=== PATIENT | male | born 1940 | race Caucasian/White ===

== ENCOUNTER 2020-03-12 14:44 | Observation (INO) | payer MEDICARE, SELFPAY ==
--- NOTE | ~2020-03-12 | XR_ITS ---
EXAMINATION: XR retrograde pyelo w/stent LT INDICATION: Left ureteral stone TECHNIQUE: Nine intraoperative fluoroscopic images are submitted for review. Fluoroscopy exposure dimple e was 12.7 seconds. The DAP for this procedure was 0.07016 mGym2. COMPARISON: CT from yesterday FINDINGS: Fluoroscopic images demonstrate retrograde opacification of a mildly dilated left renal col lecting system. There appears to be a left internal ureteral stent placed on the final image. Please refer to procedure note for full details. IMPRESSION: 1. Mild left hydronephrosis. Please refer to procedure note for full details. Reviewed, dictated and finalized at location A.
--- NOTE | ~2020-03-12 | XR_ITS ---
XR abdomen/kub 1V 03/12/2020 16:47 Indication: Left ureteral stone Procedure: KUB Comparison: CT dated 03/12/2020 Findings: There is a left ureteral stone at the L3-4 level. Moderate lumbar spondylosis. No acute oss eous abnormality. Nonobstructive bowel gas pattern. Impression: 1: Left urolithiasis at the L3-4 level. Reviewed, dictated and finalized at location A. Impression: 1: Left urolithiasis at the L3-4 level.
--- NOTE | ~2020-03-12 | CT_ITS ---
EXAMINATION: CT abdomen pelvis wo con DATE: 03/12/2020 16:04 INDICATION: Flank pain with nausea and vomiting for 3 days TECHNIQUE: Computed tomography (CT) of the abdomen and pelvis was performed without intravenous contr ast. The dose-length product was 852.89 mGy-cm. Automated exposure control and iterative reconstructi on technique were employed. COMPARISON: None. FINDINGS: Left lower lobe atelectasis. No significant pleural or pericardial effusion. There is ather osclerosis of the aorta and coronary arteries and infrarenal abdominal aortic aneurysm measuring 4.2 x 4.2 cm There is a 4 mm proximal left ureteral stone, image 82 with moderate left hydronephrosis. There is a right parapelvic cyst measuring 3.4 cm. There is a 2.1 cm exophytic left renal cyst. Enlarged prostate gland. The liver, spleen, adrenal glands are unremarkable. There is a punctate panc reatic calcification, consistent with chronic pancreatitis. Bowel pattern is nonobstructive. Colonic diverticulosis with mild surrounding pericolonic infiltration surrounding the descending colon which may relate to remote diverticulitis although mild acute diverticulitis is not excluded. Moderate lumb ar spondylosis. IMPRESSION: 1. 4 mm proximal left ureteral stone with moderate left hydronephrosis. 2: Mild chronic versus acute descending colonic diverticulitis. 3: Infrarenal abdominal aortic aneurysm measuring 4.2 cm. Reviewed, dictated and finalized at location A.
[2020-03-12 14:52] VITALS: BP 139/90; PULSE 100; RESP 18; TEMP 36.1; O2SAT 94
--- NOTE | 2020-03-12 14:57 | ECG_ITS ---
Measurements Intervals [place] Rate: 85 P: 60 KS: 195 QRS: -66 QRSD: 142 T: 99 QT: 382 QTc: 457 Interpretive Statements SINUS RHYTHM LEFT AXIS DEVIATION POSSIBLE LEFT ATRIAL ENLARGEMENT INTRAVENTRICULAR CONDUCTION DELAY BORDERLINE ST-T WAVE ABNORMALITY- HIGH LATERAL LEADS BASELINE ARTIFACT- I BORDERLINE ECG Electronically Signed On 03-12-2020 16:46:14 CDT by Rylan Lora D.O.
--- NOTE | 2020-03-12 15:09 | ED.ABDPAIN ---
HPI - Abdominal Pain General Chief Complaint: Nausea/Vomiting/Diarrhea <JODI Huff Last Filed: 03/12/20 17:13> Stated Complaint: Vomiting, ABD Pain <JODI Huff Last Filed: 03/12/20 17:13> Time Seen by Provider: 03/12/20 14:46 <JODI Huff Last Filed: 03/12/20 17:13> Source: patient <JODI Huff Last Filed: 03/12/20 17:13> Mode of arrival: ambulatory <JODI Huff Last Filed: 03/12/20 17:13> Limitations: no limitations <JODI Huff Last Filed: 03/12/20 17:13> History of Present Illness HPI narrative: Patient is a 79-year-old male who presents to emergency department for evaluation of abdominal pain coupled with nausea and vomiting that began Monday patient notes he has been having sharp stabbing pain in the left flank coupled with nausea and vomiting with multiple episodes patient denies any diarrhea rectal bleeding or urinary symptoms has not taken anything for his symptoms. Patient on arrival in the room in no distress and notes that his pain did start to improve on his way to the emergency department. Patient denies similar occurrence in the past <JODI uHff Last Filed: 03/12/20 17:13> Related Data Home Medications: Home Medications Medication Instructions Recorded Confirmed Adult Low Dose Aspirin DAILY 03/12/20 amlodipine DAILY 03/12/20 atorvastatin 80 mg PO HS 03/12/20 lisinopril DAILY 03/12/20 metoprolol succinate [Toprol XL] PO DAILY 03/12/20 <JODI Huff Last Filed: 03/12/20 17:13> Allergies/Adverse Reactions: Allergies Allergy/AdvReac Type Severity Reaction Status Date / Time No Known Allergies Allergy Verified 03/12/20 15:00 <JODI Huff Last Filed: 03/12/20 17:13> Review of Systems Review of Systems: All systems reviewed & are unremarkable except as noted in HPI and below <JODI Huff Last Filed: 03/12/20 17:13> PMF Past Medical History Medical History: Medical History (Updated 03/12/20 @ 17:13 by Josemanuel Augustin PA-C) Coronary artery disease Hypertension <Josemanuel Augustin PA-C - Last Filed: 03/12/20 17:13> Surgical History Surgical History: Surgical History Hx of CABG <Josemanuel Augustin PA-C - Last Filed: 03/12/20 17:13> Social History Social History: Social History (Updated 03/12/20 @ 15:11 by Josemanuel Augustin PA-C) Smoking status: Current every day smoker Alcohol intake: current Gender identity (if verbalized by the patient): Male <Josemanuel Augustin PA-C - Last Filed: 03/12/20 17:13> Exam Narrative: Exam Narrative: GENERAL: Well-appearing, well-nourished, and in no acute distress. HEAD: Normocephalic, atraumatic. EYES: PERRLA and EOMI. ENT: Nares clear, no rhinorrhea or epistaxis. Mucous membranes moist. CHEST: Clear to auscultation. No respiratory distress. No wheezes rales or rhonchi HEART: Regular rate and rhythm. No murmur heard. Normal peripheral pulses. ABDOMEN: Soft, mild tenderness of the abdomen, nondistended EXTREMITIES: Normal range of motion. No edema. SKIN: Warm, dry, no rash. NEURO: No focal deficits. Alert and oriented x3. PSYCH: Normal mood and affect. <Josemanuel Augustin PA-C - Last Filed: 03/12/20 17:13> Course Course Emergency Course: Patient in the room at this time aware of case findings treatment plan and diagnosis agreeing to stay in hospital aware of discussion with hospitalist and urologist afebrile nontoxic-appearing at this time <Josemanuel Augustin PA-C - Last Filed: 03/12/20 17:13> Consultations Consultation #1: Discussed case with hospitalist and urologist who agree with inpatient treatment of patient will be treated with fluids pain medications will have his troponins trended. <Josemanuel Augustin PA-C - Last Filed: 03/12/20 17:13> Date: 03/12/20 <L
[2020-03-12] MEDS: SODIUM CHLORIDE 0.9% IV 1,000 ML 999 ML IV CONT (15:13)
[2020-03-12 15:34] LABS: Basophils Absolute Auto 0.1 K/mm3 (0.0-0.1); Basophils Percent Auto 0.4 % (0.2-1.2); Eosinophils Absolute Auto 0.1 K/mm3 (0-0.3); Eosinophils Percent Auto 0.3 % (0-4.4); Hemoglobin 14.5 g/dL (14.0-18.0); Immature Granulocyte Absolute 0.09 K/mm3 (0.00-0.031); Immature Granulocyte Percent A 0.5 % (0-0.5); Lymphocytes Absolute Auto 1.78 K/mm3 (0.9-3.2); Lymphocytes Percent Auto 10.8 % (18.3-44.2); Mean Corpuscular HGB Conc 33.7 g/dl (32-36); Mean Corpuscular Volume 92.1 fl (80-100); Mean Platelet Volume 11.7 fl (7.4-10.4); Monocytes Absolute Auto 1.6 K/mm3 (0.1-0.6); Monocytes Percent Auto 9.7 % (2.6-8.5); Neutrophils Absolute Auto 12.9 K/mm3 (1.3-6.7); Neutrophils Percent Auto 78.3 % (45.5-73.1); Platelet Count Result 142 k/mm3 (150-375); Red Blood Count 4.67 M/mm3 (4.6-6.20); Red Cell Distribution Width 12.9 % (11.5-14.5); White Blood Count 16.5 K/mm3 (4.5-10.0)
[2020-03-12 15:44] LABS: INR 1.1; Prothrombin Time 13.7 Seconds (11.1-14.7)
[2020-03-12 15:45] LABS: Add Urine Microscopic? YES; Appearance Urine Clear (Clear); Bacteria Urine Trace /hpf; Bilirubin Urine Negative (Negative); Blood Urine 3+ (Negative); Color Urine Yellow (Yellow); Glucose Urine UA Negative (Negative); Granular Casts Urine 15-19 /lpf; Ketones Urine Trace mg/dL (Negative); Leukocyte Esterase Ur Negative LEU/UL (Negative); Mucus Urine Moderate /lpf; Nitrate Urine Negative (Negative); Partial Thromboplastin Time 25.2 SECONDS (22.3-36.8); Protein Urine 2+ mg/dL (Negative); RBC Urine >75 /hpf (0-2); Specific Grav Ur 1.028 (1.001-1.035); Squamous Epithelial Cell Urine Occasional /hpf (Few); Urobilinogen Urine Negative mg/dL (<2.0); WBC Urine 0-3 /hpf
[2020-03-12 15:51] LABS: Alanine Aminotransferase 20 U/L (4-50); Albumin Level 4.5 g/dL (3.5-5.1); Alkaline Phosphatase 116 U/L (38-126); Aspartate Amino Transferase 42 U/L (17-59); Bilirubin,Total 1.1 mg/dL (0.2-1.3); Blood Urea Nitrogen 37 mg/dL (9-20); Calcium 9.8 mg/dL (8.4-10.2); Carbon Dioxide 25 mmol/L (22-30); Chloride 106 mmol/L (98-107); Estimated CRCL calculation 27 ml/min; Estimated Glomerular Filt Rate 25; Glucose 107 mg/dL (75-110); Lipase 55 U/L (23-300); Sodium 139 mmol/L (137-145)
[2020-03-12 16:04] LABS: Troponin I 0.065 ng/mL (0.000-0.034)
[2020-03-12 16:11] VITALS: BP 159/85; PULSE 76; RESP 16; O2SAT 99
[2020-03-12] MEDS: LACTATED RINGERS 1,000 ML 999 ML IV CONT (16:11)
[2020-03-12] MEDS: MORPHINE SULFATE 4 MG/ML INJ IV PUSH ×4 (16:32→23:26)
[2020-03-12] MEDS: ONDANSETRON INJ 4 MG/2 ML VIAL IV PUSH (16:32)
--- NOTE | 2020-03-12 16:53 | PC.NURSE ---
family will call with eye drops to update med list
[2020-03-12] MEDS: TAMSULOSIN HCL 0.4 MG CAPSULE PO (17:45)
[2020-03-12] MEDS: LACTATED RINGERS 1,000 ML 75 ML IV CONT (17:45)
--- NOTE | 2020-03-12 18:30 | WPDURCON ---
Assessment and Plan Assessment and plan (1) Urolithiasis: Code(s): N20.9 - Urinary calculus, unspecified Status: Acute Assessment and Plan: We discussed options for his ureteral stone including trial of medical expulsive therapy as well as stenting his left kidney tomorrow. Because of his ongoing pain and his acute kidney injury I think it is prudent to take him to the OR in the morning for placement of a left ureteral stent. We discussed how the procedure is performed and the risks of anesthesia. We discussed that the stone will be treated in a few weeks as an outpatient. He and his family are in agreement and had no further questions. - to OR tomorrow morning at 0730 for cysto, left retrograde pyelogram, placement of left ureteral stent - if hospitalist team is comfortable with it, now that he has been rehydrated, 15 mg toradol would like significantly improve his pain - hopefully can discharge tomorrow afternoon - please covid test in preparation for anesthesia - please keep npo c mn Enrique Polanco MD [facility] (2) Acute kidney injury: Code(s): N17.9 - Acute kidney failure, unspecified Status: Acute Urology Consult Note HPI Date Seen: 03/12/20 Requesting Physician: Mark Arce MD Primary Care Provider: Bari Ford MD Consult Narrative Narrative: Carlos Hernandez is a 79 year old male with no history of nephrolithiasis who presented to the ED with left flank pain associated with nausea and emesis significant enough to cause some dehydration and acute kidney injury. No fevers at home. He continues to have significant pain. Creat at baseline is 1.0, creat in ED is 2.5. WBC is 16. Urinalysis shows RBC with no evidence of UTI. CT showed some parapelvic cysts and a left 5mm mid ureteral stone with mild-moderate hydro. Bladder is decompressed, prostate mildly to moderately enlarged. This consult was carried via telehealth with the patient's permission in the presence of his daughter using audio and video capabilities. Review of Systems Review of Systems: All systems reviewed & are unremarkable except as noted in HPI and below PMFSH Past Medical History Medical History Coronary artery disease Hypertension Surgical History Surgical History Hx of CABG Social History Social History Smoking status: Current every day smoker Alcohol intake: current Gender identity (if verbalized by the patient): Male Meds Home Medications and Allergies Home Medications Medication Instructions Recorded Confirmed Type Adult Low Dose Aspirin DAILY 03/12/20 History amlodipine DAILY 03/12/20 History atorvastatin 80 mg PO HS 03/12/20 History brimonidine BID 03/12/20 History latanoprost HS 03/12/20 History lisinopril DAILY 03/12/20 History metoprolol succinate [Toprol XL] PO DAILY 03/12/20 History Allergies Allergy/AdvReac Type Severity Reaction Status Date / Time No Known Allergies Allergy Verified 03/12/20 15:00 Vital Signs Vital Signs - 24 hr 03/12/20 14:52 03/12/20 16:11 Temperature 36.1 C L Pulse Rate 100 76 Respiratory Rate 18 16 Blood Pressure 139/90 159/85 H Pulse Oximetry 94 99 Exam Const: General: no acute distress and uncomfortable HENMT: Other: hearing normal Eyes: General: appearance normal, both eyes and all related structures Resp: Effort & Inspection: normal respiratory effort Auscultation: no wheezes Skin: General skin exam: normal color and no rashes or lesions noted Neuro: Cognition (Neuro): normal cognition Speech: normal speech Psych: Speech and movement: Normal speech and movement present Affect: normal affect Results Labs CBC & Chem 7: 03/12/20 15:26 03/12/20 15:26 Labs: Short CBC 03/12/20 Range
--- NOTE | 2020-03-12 18:46 | WPDANESEPP ---
Anes - Eval Pre Procedure Procedure: cysto with stent placement Date/Time: 03/12/20 18:46 Surgeon: kavya rosales M.D. Preop Diagnosis: urolithiasis Pre Op Diagnosis: Urolithiasis,acute kidney injury,elevated troponin Patient Data Age: 79 Gender: M Height: 1.8 m Weight: 102 kg Last Vital Signs Temp 36.1 C L 03/12/20 14:52 Pulse 76 03/12/20 16:11 Resp 16 03/12/20 16:11 BP 159/85 H 03/12/20 16:11 Pulse Ox 99 03/12/20 16:11 Allergies Allergy/AdvReac Type Severity Reaction Status Date / Time No Known Allergies Allergy Verified 03/12/20 15:00 Home Medications Medication Instructions Recorded Confirmed Type Adult Low Dose Aspirin DAILY 03/12/20 History amlodipine DAILY 03/12/20 History atorvastatin 80 mg PO HS 03/12/20 History brimonidine BID 03/12/20 History latanoprost HS 03/12/20 History lisinopril DAILY 03/12/20 History metoprolol succinate [Toprol XL] PO DAILY 03/12/20 History Laboratory Tests 03/12/20 03/12/20 03/12/20 15:26 15:26 15:26 WBC 16.5 K/mm3 H K/mm3 (4.5-10.0) RBC 4.67 M/mm3 M/mm3 (4.6-6.20) Hgb 14.5 g/dL g/dL (14.0-18.0) Hct 43.0 % % (42.0-52.0) MCV 92.1 fl fl (80-100) MCH 31.0 pg pg (26-34) MCHC 33.7 g/dl g/dl (32-36) RDW 12.9 % % (11.5-14.5) Plt Count 142 k/mm3 L k/mm3 (150-375) MPV 11.7 fl H fl (7.4-10.4) Immature Gran % (Auto) 0.5 % % (0-0.5) Neut % (Auto) 78.3 % H % (45.5-73.1) Lymph % (Auto) 10.8 % L % (18.3-44.2) [place] % (Auto) 9.7 % H % (2.6-8.5) Eos % (Auto) 0.3 % % (0-4.4) Baso % (Auto) 0.4 % % (0.2-1.2) Lymph # (Auto) 1.78 K/mm3 K/mm3 (0.9-3.2) [place] # (Auto) 1.6 K/mm3 H K/mm3 (0.1-0.6) Eos # (Auto) 0.1 K/mm3 K/mm3 (0-0.3) Baso # (Auto) 0.1 K/mm3 K/mm3 (0.0-0.1) Abs Immat Gran (auto) 0.09 K/mm3 H K/mm3 (0.00-0.031) Absolute Neuts (auto) 12.9 K/mm3 H K/mm3 (1.3-6.7) Absolute Nucleated RBC 0.0 K/mm3 K/mm3 (0.0-0.012) Nucleated RBC % 0.0 % % (0.0-0.2) PT 13.7 Seconds Seconds (11.1-14.7) INR 1.1 APTT 25.2 SECONDS SECONDS (22.3-36.8) Sodium 139 mmol/L mmol/L (137-145) Potassium 4.0 mmol/L mmol/L (3.4-5.0) Chloride 106 mmol/L mmol/L (98-107) Carbon Dioxide 25 mmol/L mmol/L (22-30) BUN 37 mg/dL H mg/dL (9-20) Creatinine 2.50 mg/dL H mg/dL (0.7-1.3) Estim Creat Clear Calc 27 ml/min ml/min Estimated GFR 25 L (59 - ) Glucose 107 mg/dL mg/dL (75-110) Calcium 9.8 mg/dL mg/dL (8.4-10.2) Total Bilirubin 1.1 mg/dL mg/dL (0.2-1.3) AST 42 U/L U/L (17-59) ALT 20 U/L U/L (4-50) Alkaline Phosphatase 116 U/L U/L (38-126) Troponin I 0.065 ng/mL H* ng/mL (0.000-0.034) Total Protein 8.0 g/dL g/dL (6.3-8.2) Albumin 4.5 g/dL g/dL (3.5-5.1) Lipase 55 U/L U/L (23-300) Urine Color Urine Appearance Urine pH Ur Specific [place] Urine Protein Urine Glucose (UA) Urine Ketones Ur Blood (Man) Urine Nitrate Urine Bilirubin Urine Urobilinogen Leukocyte Esterase Rfl Urine RBC Urine WBC Ur Squamous Epith Cells Urine Bacteria Hyaline Casts Granular Casts Urine Mucus 03/12/20 03/12/20 15:26 18:19 WBC RBC Hgb Hct MCV MCH MCHC RDW Plt Count MPV Immature Gran % (Auto) Neut % (Auto) Lymph % (Auto) [place] % (Auto
--- NOTE | 2020-03-12 18:48 | PC.NURSE ---
This patient, Carlos Hernandez, was admitted to IMU Room 210-01. Patient/family oriented to hospital policies and general routines including ID bracelet, bed and alarms, visiting hours, pain management, procedures, bathroom and other care routines, personal items, smoking policy, room service/diet, and visiting hours. Valuables list has been completed. Information on how to activate the Rapid Response Team has been discussed. Patient/Family are encouraged to report perceived risks to care and to ask questions if they do not understand what they are told or what they should do.
[2020-03-12 18:49] VITALS: BMI 30.3
[2020-03-12 19:00] VITALS: BP 158/90; PULSE 90; RESP 20; TEMP 36.9; O2SAT 94; BMI 30.3
[2020-03-12 19:10] LABS: Troponin I 0.071 ng/mL (0.000-0.034)
--- NOTE | 2020-03-12 19:10 | PM.IMHP ---
H&P: HPI History of Present Illness Chief complaint: Abdominal pain, nausea, vomiting. Narrative: Carlos Hernandez is a 79-year-old male smoker with coronary artery disease, hypertension, and hyperlipidemia who presented to the emergency department earlier this afternoon for evaluation of left flank pain, nausea, and vomiting. He developed sudden onset left low back/flank pain on Monday that has been constant, with varying intensities, since that time. The pain is described as sharp and shooting in nature, and does radiate from the left low back to the left flank and groin area. He has taken Tylenol without a whole lot of benefit. He does not notice any significant aggravating or relieving factors. Not long after the pain began, he developed nausea and he has had persistent nausea and occasional vomiting. He has not been able to hold down much in the way of food but has been trying to drink water. He has noticed that his urine is darker than normal and that he has had a decrease in urine output, but he denies overt hematuria and has not had dysuria. He has not had fever, chills, or sweats. He had a normal bowel movement Monday and he denies blood in mucus in the stool. He has no prior history of kidney stones. He does have a history of diverticulitis many years ago, and states that these symptoms are completely different than that. Review of Systems Review of Systems: Narrative: Twelve systems were reviewed with pertinent positives and negatives as per HPI. No fever, chills, or sweats. No recent cold or flu symptoms. He denies chest pain shortness of breath. No history of coronary disease. No cough. He denies hematemesis. Except as documented, all other systems were reviewed and are negative. [facility] Past Medical History Medical History (Updated 03/12/20 @ 22:20 by Julita Pichardo PA-C) Coronary artery disease Diverticulitis Glaucoma Hyperlipidemia Hypertension Osteoarthritis Surgical History Surgical History (Updated 03/12/20 @ 22:11 by Julita Pichardo PA-C) History of aortic valve replacement (~12/2018) Performed at the time of his 4 vessel CABG. History of appendectomy History of cervical spinal surgery History of four vessel coronary artery bypass graft (~12/2018) Done at [facility] in [facility]. History of total bilateral knee replacement Family History Family History (Updated 03/12/20 @ 22:12 by Julita Pichardo PA-C) Other Hypertension Social History Social History (Updated 03/12/20 @ 22:13 by Julita Pichardo PA-C) Social History: The patient lives in [place] with his daughter, son-in-law, and 2 grandchildren. 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 He smoked up to a pack of cigarettes per day, and now smokes less than half a pack a day. He has been a smoker for about 60 years. No alcohol or drug abuse. He designates his daughter, Sultana Santoyo, as his surrogate decision maker and he wishes to be a full code. Years smoked: 60 Smoking status: Current every day smoker Tobacco type: cigarettes Gender identity (if verbalized by the patient): Male Spiritual care concerns: No Meds Home Medications and Allergies Home Medications Medication Instructions Recorded Confirmed Type Adult Low Dose Aspirin DAILY 03/12/20 History amlodipine DAILY 03/12/20 History atorvastatin 80 mg PO HS 03/12/20 History brimonidine BID 03/12/20 History latanoprost HS 03/12/20 History lisinopril DAILY 03/12/20 History metoprolol succinate [Toprol XL] PO DAILY 03/12/20 History timolol maleate 1 drp RIGHTEYE BID 03/12/20 03/12/20 History Allergies Allergy/AdvReac Type Severity Reaction Status Date / Time No Known Allergies Allergy Verified 03/12/20 15:00 Vital Signs Vital Signs - 24 hr 03/12/20 14:52 03/12/20 16:11 03/12/20 19:00 Temperature 97.0 F L 98.5 F Pulse Rate 100 76 90 Respiratory Rate 18 16 20 Blood Pressu
[2020-03-12] MEDS: SODIUM CHLORIDE 0.9% IV 1,000 ML 100 ML IV CONT (19:58)
[2020-03-12 20:00] VITALS: BP 146/88; PULSE 89; PULSE 91; RESP 16; RESP 18; TEMP 36.9; O2SAT 95
[2020-03-12 21:51] LABS: Troponin I 0.068 ng/mL (0.000-0.034)
[2020-03-12 22:00] VITALS: PULSE 83
[2020-03-12] MEDS: ATORVASTATIN 40 MG TABLET 80 MG PO (23:26)
[2020-03-13] VITALS (22 sets, daily range): BP systolic 99–134; BP diastolic 56–79; PULSE 49–88; RESP 12–20; TEMP 35.9–37.3; O2SAT 91–99
[2020-03-13] MEDS: MORPHINE SULFATE 4 MG/ML INJ IV PUSH ×4 (03:39→18:22)
[2020-03-13 04:32] LABS: Basophils Absolute Auto 0.1 K/mm3 (0.0-0.1); Basophils Percent Auto 0.5 % (0.2-1.2); Eosinophils Absolute Auto 0.2 K/mm3 (0-0.3); Eosinophils Percent Auto 1.1 % (0-4.4); Hematocrit 38.7 % (42.0-52.0); Hemoglobin 11.9 g/dL (14.0-18.0); Immature Granulocyte Absolute 0.06 K/mm3 (0.00-0.031); Immature Granulocyte Percent A 0.4 % (0-0.5); Immature Platelet Fraction Pct 4.3 % (0.9-11.2); Lymphocytes Absolute Auto 1.71 K/mm3 (0.9-3.2); Lymphocytes Percent Auto 12.2 % (18.3-44.2); Mean Corpuscular HGB Conc 30.7 g/dl (32-36); Mean Corpuscular Hemoglobin 30.7 pg (26-34); Mean Corpuscular Volume 99.7 fl (80-100); Monocytes Absolute Auto 1.5 K/mm3 (0.1-0.6); Monocytes Percent Auto 10.7 % (2.6-8.5); Neutrophils Absolute Auto 10.6 K/mm3 (1.3-6.7); Neutrophils Percent Auto 75.1 % (45.5-73.1); Platelet Count Result 99 k/mm3 (150-375); Red Blood Count 3.88 M/mm3 (4.6-6.20); Red Cell Distribution Width 12.7 % (11.5-14.5); White Blood Count 14.1 K/mm3 (4.5-10.0)
[2020-03-13 04:46] LABS: Blood Urea Nitrogen 32 mg/dL (9-20); Calcium 8.3 mg/dL (8.4-10.2); Carbon Dioxide 20 mmol/L (22-30); Chloride 108 mmol/L (98-107); Creatine Kinase 459 U/L (55-170); Estimated CRCL calculation 32 ml/min; Estimated Glomerular Filt Rate 31; Glucose 86 mg/dL (75-110); Potassium 4.2 mmol/L (3.4-5.0); Sodium 136 mmol/L (137-145)
[2020-03-13] MEDS: SODIUM CHLORIDE 0.9% IV 1,000 ML 100 ML IV CONT (05:31)
[2020-03-13] MEDS: LACTATED RINGERS 1,000 ML 30 ML IV CONT (06:40)
--- NOTE | 2020-03-13 06:44 | WPDANESEFPP ---
Anes - Eval Final PreProcedure Day of Procedure 03/13/20 06:44 Patient weight: obese Heart: regular rate and rhythm Lungs: clear to auscultation Airway: Mallampati scale class III Neurological: alert and oriented Last oral intake: >/= 8 hours ASA classification: III Emergent: yes Anesthetic plan: proceed Anesthesia type and monitoring: general LMA and standard monitoring Informed Consent: The patient's anesthetic plan and its attendant risks and benefits were discussed with the patient/family/POA. Questions were solicited and answers provided to the satisfaction of the patient/family/POA.
--- NOTE | 2020-03-13 07:43 | PM.PROC ---
Procedure Note - Detailed Date of procedure: 03/13/20 Pre-op diagnosis: Abdominal pain, nausea, vomiting. left obstructing ureteral stone Post-op diagnosis: same Procedure performed: Cystoscopy, left retrograde pyelogram, left ureteral stent placement Description of procedure: The patient was brought back to the operating room. He was prepped, draped, padded per protocol. IV sedation was utilized with an LMA mask. The bladder was entered with the rigid cystoscope. The anterior urethra was unremarkable. The prostatic urethra was moderately obstructive, bilobar. The bladder itself was unremarkable. Ureteral orifices were orthotopic. A guidewire was advanced up the left ureter. An open-ended ureteral catheter was advanced over the wire; the wire was removed and a retrograde pyelogram was performed. This showed minimal proximal hydronephrosis and good opacification of a bilobed collecting system with 1 ureter. The guidewire was then replaced through the open-ended ureteral catheter up into the proximal collecting system. Over this a 4.8 Slov[place] variable length stent was advanced. There was a good curl noted proximally. A good curl was visualized distally in the bladder. The bladder was drained and the patient was sent to recovery. Plan: Arrange for ureteroscopy with stone extraction in the next 1-2 weeks. Hopefully he should be able to be discharged today. He should be discharged with tamsulosin 0.4 mg once daily to help with stent discomfort. Surgeon: Enrique Polanco MD Complications: None Condition: stable
[2020-03-13] MEDS: METOPROLOL SUCCINATE EXT REL 50 MG TABCR PO (10:22)
[2020-03-13] MEDS: BRIMONIDINE TARTRATE 0.2% OP SOLN 5 ML BTL 1 DROP EACH EYE ×2 (10:22→17:15)
[2020-03-13] MEDS: ASPIRIN 81 MG ENTERIC TABLET PO (10:22)
[2020-03-13] MEDS: AMLODIPINE BESYLATE 5 MG TABLET PO (10:22)
[2020-03-13] MEDS: TIMOLOL MALEATE 0.25% OP SOLN 5 ML BOTTLE 1 DROP EACH EYE ×2 (10:22→20:34)
[2020-03-13] MEDS: ONDANSETRON INJ 4 MG/2 ML VIAL IV PUSH (10:24)
[2020-03-13 13:11] LABS: SARS-CoV-2 RNA PCR Negative
[2020-03-13 14:13] LABS: Albumin Level 3.4 g/dL (3.5-5.1); Blood Urea Nitrogen 34 mg/dL (9-20); Calcium 8.5 mg/dL (8.4-10.2); Carbon Dioxide 28 mmol/L (22-30); Chloride 105 mmol/L (98-107); Estimated CRCL calculation 32 ml/min; Estimated Glomerular Filt Rate 31; Glucose 87 mg/dL (75-110); Phosphorus 3.8 mg/dL (2.5-4.5); Potassium 3.9 mmol/L (3.4-5.0); Sodium 137 mmol/L (137-145)
--- NOTE | 2020-03-13 15:36 | PM.IMPN ---
Progress Note: A&P Assessment and Plan (1) Acute kidney injury: Code(s): N17.9 - Acute kidney failure, unspecified Status: Acute Assessment and Plan: Due to dehydration from poor oral intake in the setting of left ureteral stone with moderate hydronephrosis and LOY-inhibitor use. On arrival he was receiving IV fluid rehydration, after his procedure this morning fluids were stopped. I recheck his creatinine this afternoon which showed his creatinine was still at 2.1 which is stable from this morning. Will restart IV fluids at this time, avoid nephrotoxic medications, continue monitoring renal function and urinary output. (2) Left ureteral stone: Code(s): N20.1 - Calculus of ureter Status: Acute Assessment and Plan: CT showed 4 millimeter proximal left ureteral stone with moderate left hydronephrosis. Patient went to the OR this morning for a cystoscopy, left retrograde pyelogram, left ureteral stent placement by Dr. Polanco He is still having some increased pain to his left flank with radiation to his left lower quadrant and groin Will continue with some pain control switching to oral pain meds as needed. He is having a good amount of hematuria as well since his procedure. Will continue monitoring this as well. Continue monitoring patient's pain and symptoms. Neurology's input is greatly appreciated. (3) Elevated troponin: Code(s): R79.89 - Other specified abnormal findings of blood chemistry Status: Acute Assessment and Plan: Patient is having no chest pain whatsoever and denies having experience exertional chest pain or shortness of breath. Likely elevated in the setting of acute kidney injury, but will continue to trend. Troponins were trending down. Telemetry shows normal sinus rhythm with a heart rate of 92 beats per minute with occasional PVCs and PACs. He did have 1 bradycardic episode that went into the 40s and 50s while he was taking a nap. Patient's nurse as this is after he had received morphine and was sleeping. He denies any chest pain at all or shortness of breath. No further cardiac workup is necessary at this time unless he develops new symptoms. (4) Aneurysm of infrarenal abdominal aorta: Code(s): I71.4 - Abdominal aortic aneurysm, without rupture Status: Acute Assessment and Plan: 4.2 centimeter infrarenal abdominal aortic aneurysm noted on CT This will need close outpatient monitoring by his primary care provider. (5) Hypertension: Code(s): I10 - Essential (primary) hypertension Status: Acute Assessment and Plan: Blood pressures were reviewed and they have been better controlled into the 120s. Most likely it is improved since his pain is improved after his procedure. Will need to monitor closely since lisinopril is on hold given acute kidney injury. (6) Hyperlipidemia: Code(s): E78.5 - Hyperlipidemia, unspecified Status: Acute Assessment and Plan: Continue atorvastatin; LFTs within normal limits. (7) Glaucoma: Code(s): H40.9 - Unspecified glaucoma Status: Acute Assessment and Plan: Continue eyedrops. Patient may use those from home if they are non formulary. (8) Leukocytosis: Code(s): D72.829 - Elevated white blood cell count, unspecified Status: Acute Assessment and Plan: Could be a stress response due to pain. No evidence of UTI on urinalysis today. CT does show mild chronic versus descending colonic diverticulitis, although patient states he is having no symptoms of such. Will em
[2020-03-13] MEDS: LACTATED RINGERS 1,000 ML 100 ML IV CONT (17:16)
[2020-03-13] MEDS: TAMSULOSIN HCL 0.4 MG CAPSULE PO (18:22)
[2020-03-13] MEDS: OXYBUTYNIN CHLORIDE 5 MG TABLET PO (18:50)
--- NOTE | 2020-03-13 19:44 | PC.NURSE ---
Called Dr. Polanco notified him of Pain, Bloody urine and output, Bladder scanned patient only 94mls in bladder. Gave new orders.
[2020-03-13] MEDS: ATORVASTATIN 40 MG TABLET 80 MG PO (20:33)
[2020-03-13] MEDS: LATANOPROST 0.005% OP SOLN 2.5 ML BTL 1 DROP EACH EYE (20:33)
--- NOTE | 2020-03-13 20:45 | PC.NURSE ---
This patient, Carlos Hernandez, was transferred to [254 ] on 03/13/20 at 1930. Personal belongings sent with patient. Belongings list checked and signed with receiving [ ]. Report given by Monique to receiving nurse]. Appropriate documentation sent with patient.
[2020-03-13] MEDS: MORPHINE SULFATE 2 MG/ML INJ IV PUSH (22:14)
--- NOTE | 2020-03-13 23:27 | PC.NURSE ---
Received pt from [facility] at 1955 to room 254. Monique called report at 1930 and brought pt over with chart and meds. Pt in bed resting comfortably. Will monitor
[2020-03-14] MEDS: LACTATED RINGERS 1,000 ML 100 ML IV CONT ×2 (02:12→11:53)
[2020-03-14] MEDS: MORPHINE SULFATE 4 MG/ML INJ IV PUSH (02:13)
[2020-03-14 06:01] VITALS: BP 122/67; PULSE 69; RESP 20; TEMP 36.4; O2SAT 90
[2020-03-14 07:23] LABS: Albumin Level 3.5 g/dL (3.5-5.1); Blood Urea Nitrogen 33 mg/dL (9-20); Calcium 8.7 mg/dL (8.4-10.2); Carbon Dioxide 27 mmol/L (22-30); Chloride 106 mmol/L (98-107); Estimated CRCL calculation 34 ml/min; Estimated Glomerular Filt Rate 32; Glucose 74 mg/dL (75-110); Phosphorus 3.6 mg/dL (2.5-4.5); Potassium 4.1 mmol/L (3.4-5.0); Sodium 137 mmol/L (137-145)
[2020-03-14 07:44] LABS: Basophils Absolute Auto 0.1 K/mm3 (0.0-0.1); Basophils Percent Auto 0.9 % (0.2-1.2); Eosinophils Absolute Auto 0.4 K/mm3 (0-0.3); Eosinophils Percent Auto 4.2 % (0-4.4); Hematocrit 40.2 % (42.0-52.0); Hemoglobin 12.6 g/dL (14.0-18.0); Immature Granulocyte Absolute 0.02 K/mm3 (0.00-0.031); Immature Granulocyte Percent A 0.2 % (0-0.5); Immature Platelet Fraction Pct 4.9 % (0.9-11.2); Lymphocytes Absolute Auto 1.49 K/mm3 (0.9-3.2); Lymphocytes Percent Auto 16.1 % (18.3-44.2); Mean Corpuscular HGB Conc 31.3 g/dl (32-36); Mean Corpuscular Hemoglobin 30.7 pg (26-34); Mean Corpuscular Volume 97.8 fl (80-100); Monocytes Percent Auto 10.2 % (2.6-8.5); Neutrophils Absolute Auto 6.4 K/mm3 (1.3-6.7); Neutrophils Percent Auto 68.4 % (45.5-73.1); Platelet Count Result 121 k/mm3 (150-375); Red Blood Count 4.11 M/mm3 (4.6-6.20); Red Cell Distribution Width 12.7 % (11.5-14.5); White Blood Count 9.3 K/mm3 (4.5-10.0)
[2020-03-14 08:48] VITALS: PULSE 69
[2020-03-14] MEDS: METOPROLOL SUCCINATE EXT REL 50 MG TABCR PO (08:48)
[2020-03-14] MEDS: TAMSULOSIN HCL 0.4 MG CAPSULE PO (08:48)
[2020-03-14] MEDS: AMLODIPINE BESYLATE 5 MG TABLET PO (08:48)
[2020-03-14] MEDS: ASPIRIN 81 MG ENTERIC TABLET PO (08:49)
[2020-03-14] MEDS: BRIMONIDINE TARTRATE 0.2% OP SOLN 5 ML BTL 1 DROP EACH EYE (08:49)
[2020-03-14] MEDS: TIMOLOL MALEATE 0.25% OP SOLN 5 ML BOTTLE 1 DROP EACH EYE (08:49)
--- NOTE | 2020-03-14 13:46 | P.PNIM_ITS ---
Progress Note: A&P Assessment and Plan (1) Acute kidney injury: Code(s): N17.9 - Acute kidney failure, unspecified Status: Acute Assessment and Plan: Due to dehydration from poor oral intake in the setting of left ureteral stone with moderate hydronephrosis and LOY-inhibitor use. * On arrival he was receiving IV fluid rehydration, after his procedure this morning fluids were stopped. * I recheck his creatinine this afternoon which showed his creatinine was still at 2.1 which is stable from this morning. Will restart IV fluids at this time, avoid nephrotoxic medications, continue monitoring renal function and urinary output. (2) Left ureteral stone: Code(s): N20.1 - Calculus of ureter Status: Acute Assessment and Plan: CT showed 4 millimeter proximal left ureteral stone with moderate left hydronephrosis. Patient went to the OR this morning for a cystoscopy, left retrograde pyelogram, left ureteral stent placement by Dr. Polanco * He is still having some increased pain to his left flank with radiation to his left lower quadrant and groin * Will continue with some pain control switching to oral pain meds as needed. * He is having a good amount of hematuria as well since his procedure. Will con tinue monitoring this as well. Continue monitoring patient's pain and symptoms. Neurology's input is greatly appreciated. (3) Elevated troponin: Code(s): R79.89 - Other specified abnormal findings of blood chemistry Status: Acute Assessment and Plan: Patient is having no chest pain whatsoever and denies having experience exertional chest pain or shortness of breath. * Likely elevated in the setting of acute kidney injury, but will continue to trend. * Troponins were trending down. * Telemetry shows normal sinus rhythm with a heart rate of 92 beats per minute with occasional PVCs and PACs. He did have 1 bradycardic episode that went into the 40s and 50s while he was taking a nap. Patient's nurse as this is after he had received morphine and was sleeping. * He denies any chest pain at all or shortness of breath. No further cardiac workup is necessary at this time unless he develops new symptoms. (4) Aneurysm of infrarenal abdominal aorta: Code(s): I71.4 - Abdominal aortic aneurysm, without rupture Status: Acute Assessment and Plan: * 4.2 centimeter infrarenal abdominal aortic aneurysm noted on CT * This will need close outpatient monitoring by his primary care provider. (5) Hypertension: Code(s): I10 - Essential (primary) hypertension Status: Acute Assessment and Plan: * Blood pressures were reviewed and they have been better controlled into the 120s. * Most likely it is improved since his pain is improved after his procedure. Will need to monitor closely since lisinopril is on hold given acute kidney injury. (6) Hyperlipidemia: Code(s): E78.5 - Hyperlipidemia, unspecified Status: Acute Assessment and Plan: * Continue atorvastatin; LFTs within normal limits. (7) Glaucoma: Code(s): H40.9 - Unspecified glaucoma Status: Acute Assessment and Plan: * Continue eyedrops. Patient may use those from home if they are non formulary.
--- NOTE | 2020-03-14 13:56 | PM.DS ---
DS: Admitting Diagnosis Admitting Diagnosis Admitting Diagnosis: Urinary calculus, unspecified DS: Discharge Diagnosis Discharge Diagnosis (1) Acute kidney injury: Code(s): N17.9 - Acute kidney failure, unspecified Status: Acute Assessment and Plan: Due to dehydration from poor oral intake in the setting of left ureteral stone with moderate hydronephrosis and LOY-inhibitor use. On arrival he was receiving IV fluid rehydration, after his procedure fluids were stopped and his repeat creatinine was still at 2.1 which is stable. IV fluids were restarted last night and healing had slight improvement of his creatinine to 2.0. I talked with urology about the patient's creatinine and dark urine and Dr. Wright states this is completely normal after having stents placed, kidney stone still in place, and is not uncommon for his creatinine to slowly come back down to normal. At this time the patient is feeling well without any issues or concerns at this time. He is able to urinate without any discomfort. He He will be discharged home to continue drinking plenty of fluids. He will follow-up with urology to have stent removed next week and we will recheck a BMP in 1 week. (2) Left ureteral stone: Code(s): N20.1 - Calculus of ureter Status: Acute Assessment and Plan: CT showed 4 millimeter proximal left ureteral stone with moderate left hydronephrosis. Patient went to the OR 03/13/2020 for a cystoscopy, left retrograde pyelogram, left ureteral stent placement by Dr. Polanco He states his pain is much better controlled at this time and he only has some slight left flank pain which has improved with pain meds. He still having some hematuria as well but urology states this is all normal. He is otherwise stable from a urology standpoint and we will have him discharged home to follow-up with urology next week. (3) Elevated troponin: Code(s): R79.89 - Other specified abnormal findings of blood chemistry Status: Acute Assessment and Plan: Patient is having no chest pain whatsoever and denies having experience exertional chest pain or shortness of breath. Likely elevated in the setting of acute kidney injury, but will continue to trend. Troponins were trending down. He denies any chest pain at all or shortness of breath. No further cardiac workup is necessary at this time unless he develops new symptoms. (4) Aneurysm of infrarenal abdominal aorta: Code(s): I71.4 - Abdominal aortic aneurysm, without rupture Status: Acute Assessment and Plan: 4.2 centimeter infrarenal abdominal aortic aneurysm noted on CT This will need close outpatient monitoring by his primary care provider. (5) Hypertension: Code(s): I10 - Essential (primary) hypertension Status: Acute Assessment and Plan: Blood pressure is stable at in the 120 while we hold his lisinopril. Will have him continue checking his blood pressure at home and restart his medications. (6) Hyperlipidemia: Code(s): E78.5 - Hyperlipidemia, unspecified Status: Acute Assessment and Plan: Continue atorvastatin; LFTs within normal limits. (7) Glaucoma: Code(s): H40.9 - Unspecified glaucoma Status: Acute Assessment and Plan: Continue eyedrops. (8) Leukocytosis: Code(s): D72.829 - Elevated white blood cell count, unspecified Status: Acute Assessment and Plan: Could be a stress response due to pain. No evidence of UTI on urinalysis today. CT does show mild chronic versus descending c
[2020-03-14 15:00] VITALS: BP 130/70; PULSE 56; RESP 18; TEMP 36.8; O2SAT 91
== END 2020-03-14 15:47 | disposition home or self-care (01) ==
LOC: ANHED 17:16 → ANHIMU 18:13 → ANH2MED 03-14 14:14 → ANHIMU 03-16 13:44
PROVIDERS: Emergency Medicine Emergency Medical Services; Physician Assistant; Urology; Admitting Provider Internal Medicine; Emergency Provider Emergency Medicine; PCP Internal Medicine; Visit Provider Family Medicine
PROC: (CPT 52352; principal; 2020-03-13 07:30)
DX: N13.2 Hydronephrosis with renal and ureteral calculous obstruction (principal); N17.9 Acute kidney failure, unspecified; E86.0 Dehydration; R79.89 Other specified abnormal findings of blood chemistry; I71.4 Abdominal aortic aneurysm, without rupture; I10 Essential (primary) hypertension; E78.5 Hyperlipidemia, unspecified; H40.9 Unspecified glaucoma; D72.829 Elevated white blood cell count, unspecified; Z11.59 Encounter for screening for other viral diseases; I25.10 Atherosclerotic heart disease of native coronary artery without angina pectoris; F17.210 Nicotine dependence, cigarettes, uncomplicated; Z79.899 Other long term (current) drug therapy; Z95.1 Presence of aortocoronary bypass graft
CPT/HCPCS: 52332; 36415; 74018; 74176; 74420; 80048; 80053; 80069; 81001; 82550; 83690; 84484; 85025; 85055; 85610; 85730; 87635; 93005; 96361; 96365; 96366; 96367; 96375; 96376; 99285; A9270; C2617; C9803; G0378; J0131; J2270; J2405; J2543; J2704; J3010; J3360; J7030; J7120; U0003

== ENCOUNTER 2020-06-09 10:47 | Outpatient (CLI) | payer MEDICARE, SELFPAY ==
--- NOTE | ~2020-06-09 | XR_ITS ---
EXAMINATION: XR abdomen/kub 1V DATE: 06/09/2020 11:16 INDICATION: Ureteral calculi TECHNIQUE: A supine view of the abdomen on 2 radiographs was obtained. COMPARISON: CT and KUB dated 03/12/2020 FINDINGS: 2 mm calcification at the upper pole of the left kidney likely representing a renal stone. Additional calcific a cyst projecting over the left renal hilum which on CT appear more likely to represent ath erosclerotic calcifications. Additional extensive atherosclerotic calcifications along the abdominal aorta and in the iliac arteries in the pelvis. No other evident urolithiasis. Severe lumbar spondylos is. There are bridging osteophytes at multiple levels in the thoracic and lumbar spine consistent wit h diffuse idiopathic skeletal hyperostosis (DISH). Dense mitral annular calcification. IMPRESSION: 1. 2 mm stone at the upper pole of the left kidney. No other evident urolithiasis. Reviewed, dictated and finalized at location A. IMPRESSION: 1. 2 mm stone at the upper pole of the left kidney. No other evident urolithias is.
== END 2020-06-09 10:48 | disposition home or self-care (01) ==
LOC: ANHIMG 10:57
PROVIDERS: PCP Nurse Practitioner; Visit Provider Urology
DX: N20.1 Calculus of ureter (principal)
CPT/HCPCS: 74018

== ENCOUNTER 2021-03-31 12:32 | Outpatient (CLI) | payer MEDICARE, SELFPAY ==
--- NOTE | ~2021-03-31 | XR_ITS ---
XR abdomen/kub 1V DATE: 03/31/2021 13:04 INDICATION: Ureteral calculi follow-up TECHNIQUE: AP projection, 2 views COMPARISON: 06/09/2020 KUB 03/12/[address] abdomen pelvis FINDINGS: Approximately 2.5 mm calcification is again noted overlying the mid left kidney. No other o bvious urinary tract calculus is evident. Calcified calculus of the left ureter at the L3-4 level not ed on 03/12/2020 is no longer present. No evidence of bowel obstruction. The psoas shadows are intact. No visceromegaly is evident. Degenerative changes of the lumbar spine and hip joints. Abdominal aortic and iliac and femoral artery calcifications.. IMPRESSION: No significant change since 06/09/2020 Reviewed, dictated and finalized at Location A. Reviewed, dictated and finalized at location A.
--- NOTE | ~2021-03-31 | US_ITS ---
US retroperitoneal comp DATE: 03/31/2021 13:02 INDICATION: Ureteral calculi TECHNIQUE: Real time imaging of kidneys COMPARISON: 03/12/2020 CT abdomen pelvis FINDINGS: The right kidney measures approximately 11 cm length, the left kidney approximately 10.9 cm length. There is an approximately 3 cm lower pole central right renal cyst. Approximately 2 cm 1 cm left renal cysts. No hydronephrosis of either kidney is evident. IMPRESSION: Resolution of left hydronephrosis since 03/04/2020 Bilateral renal cysts Reviewed, dictated and finalized at Location [facility]. Reviewed, dictated and finalized at location A.
== END 2021-03-31 12:33 | disposition home or self-care (01) ==
LOC: ANHIMG 12:33
PROVIDERS: PCP Nurse Practitioner; Visit Provider Urology
DX: N20.1 Calculus of ureter (principal); N28.1 Cyst of kidney, acquired
CPT/HCPCS: 74018; 76770

== ENCOUNTER 2022-07-13 08:37 | Outpatient (CLI) | payer MEDICARE, SELFPAY ==
--- NOTE | ~2022-07-13 | CT_ITS ---
EXAMINATION:CT diagnostic chest wo con DATE: 07/13/2022 09:02 INDICATION: Personal history of nicotine dependence. TECHNIQUE: Computed tomography (CT) of the chest was performed without intravenous contrast. Automate d exposure control and iterative reconstruction technique were employed. The dose-length product (DLP ) was 169.29 mGy-cm. COMPARISON: CT abdomen and pelvis 03/12/2020 FINDINGS: There are calcified pleural plaques bilaterally, which may be seen with asbestos exposure. There is mild emphysema. There is mild atelectasis in left lung with a peripheral predominance, at le ast some of which is chronic. No pleural effusion. The heart size is normal. There are changes of aor tic valve replacement. There are coronary artery calcifications. There are changes of coronary artery bypass grafting. There is ectasia of ascending aorta measuring 4.7 cm. There are cysts in the kidney s measuring up to 2.2 cm on the left. There is diverticulosis of the colon without evidence of divert iculitis. There are bridging endplate osteophytes at multiple levels in the spine, consistent with di ffuse idiopathic skeletal hyperostosis (DISH). There is mild chronic anterior wedging of multiple ngozi tebral bodies. There are changes of anterior fusion procedure in cervical spine. IMPRESSION: 1. Lung-RADS category 2: Benign appearance or behavior. Reviewed, dictated and finalized at location A.
--- NOTE | ~2022-07-13 | US_ITS ---
EXAMINATION: US aorta DATE: 07/13/2022 09:29 INDICATION: Abdominal aortic aneurysm without rupture. TECHNIQUE: Grayscale, color Doppler, and pulsed Doppler images of the aorta and common iliac arteries were obtained. COMPARISON: CT abdomen and pelvis 03/12/2022 FINDINGS: The aorta demonstrates a 4.3 x 4.5 cm fusiform infrarenal aneurysm. The right common iliac artery demetrice sures 2.4 cm. The left common iliac artery measures 2.3 cm. IMPRESSION: 1. 4.5 cm fusiform infrarenal aortic aneurysm, which measured 4.2 cm on 03/12/2020. Reviewed, dictated and finalized at location A. IMPRESSION: 1. 4.5 cm fusiform infrarenal aortic aneurysm, which measured 4.2 cm on 03/12/20 20.
== END 2022-07-13 08:38 | disposition home or self-care (01) ==
PROVIDERS: PCP Internal Medicine; Visit Provider Internal Medicine
DX: I71.4 Abdominal aortic aneurysm, without rupture (principal); I71.9 Aortic aneurysm of unspecified site, without rupture; Z87.891 Personal history of nicotine dependence; N28.1 Cyst of kidney, acquired; I25.10 Atherosclerotic heart disease of native coronary artery without angina pectoris; K57.30 Diverticulosis of large intestine without perforation or abscess without bleeding; Z98.1 Arthrodesis status
CPT/HCPCS: 71250; 76775

== ENCOUNTER 2024-01-15 13:07 | Outpatient (CLI) | payer MEDICARE, SELFPAY ==
--- NOTE | 2024-01-15 | ECHO_ITS ---
Patient Info Name: Carlos Hernandez Age: 83 years : 1940 Gender: Male Ht: 71 in Wt: 205 lbs BSA: 2.18 m2 HR: 56 bpm BP: 99 / 65 mmHg Heart Rhythm: Bradycardia, Sinus Rhythm Technical Quality: Fair Exam Date: 01/15/2024 1:39 PM Exam Location: Echo Lab Patient Status: Outpatient Admit Date: 01/15/2024 Staff Ordering Physician: KRISTI, SCOT Lim Android Ios Developer: Sofi Carty RDCS Attending Provider: KRISTI, SCOT Lim Referring Physician: KRISTI MIN; Exam Type: CA echo doppler color flow Study Info Indications - S/P AVR Complete two-dimensional, color flow and Doppler transthoracic echocardiogram is performed. Summary 1. Complete two-dimensional, color flow and Doppler transthoracic echocardiogram is performed. 2. Left ventricular chamber dimension is normal. 3. Left ventricular systolic function is normal, estimated at 55-60%. 4. There is moderately increased left ventricular wall thickness. 5. The left ventricular diastolic function is grade I diastolic dysfunction. 6. Normal bioprosthetic valve function with peak velocity 2.9 m/sec, mean gradient 16 mmHg and calculated valve area 1.5 cm2. 7. There is no regurgitation of the bioprosthetic aortic valve. 8. The bioprosthetic aortic valve is not well visualized. 9. There is mild tricuspid valve regurgitation. 10. No pulmonary hypertension, estimated pulmonary arterial systolic pressure is 28 mmHg. Left Ventricle Left ventricular chamber dimension is normal. Left ventricular systolic function is normal, estimated at 55-60%. There is moderately increased left ventricular wall thickness. The left ventricular diastolic function is grade I diastolic dysfunction. Right Ventricle Right ventricular chamber dimension is normal. Right ventricular systolic function is normal. Left Atria Left atrial chamber dimension is normal. Right Atria Right atrial chamber dimension is normal. Aortic Valve The bioprosthetic aortic valve is not well visualized. There is no regurgitation of the bioprosthetic aortic valve. Normal bioprosthetic valve function with peak velocity 2.9 m/sec, mean gradient 16 mmHg and calculated valve area 1.5 cm2. Pulmonic Valve The pulmonic valve is not well visualized. There is trace pulmonic regurgitation. Mitral Valve The mitral valve has thickened leaflets. There is trace mitral valve regurgitation. The mitral valve annulus is severely calcified. Tricuspid Valve The tricuspid valve leaflets are normal. There is mild tricuspid valve regurgitation. No pulmonary hypertension, estimated pulmonary arterial systolic pressure is 28 mmHg. Pericardium/Pleural The pericardium appears normal. There is trivial pericardial effusion. Inferior Vena Cava Normal inferior vena cava with >50% collapse upon inspiration consistent with normal right atrial pressure, 5 mmHg. Aorta The aortic root size at the sinus of Valsalva is normal. The prox ascending aorta size is normal. Left Ventricular Outflow Tract Name Value Normal LVOT 2D LVOT Diameter 2.0 cm LVOT Doppler LVOT Peak Gradient 8 mmHg LVOT Mean Gradient 4 mmHg LVOT VTI
== END 2024-01-15 13:08 | disposition home or self-care (01) ==
PROVIDERS: PCP Internal Medicine
DX: I25.10 Atherosclerotic heart disease of native coronary artery without angina pectoris (principal); Z95.2 Presence of prosthetic heart valve; I36.1 Nonrheumatic tricuspid (valve) insufficiency
CPT/HCPCS: 93306

== ENCOUNTER 2024-05-29 15:03 | Inpatient (IN) | payer MEDICARE, SELFPAY ==
[2024-05-29] VITALS (8 sets, daily range): BP systolic 132–150; BP diastolic 76–100; PULSE 60–68; RESP 15–25; TEMP 36.2–36.8; O2SAT 96–99; BMI 26.7
--- NOTE | ~2024-05-29 | US_ITS ---
US renal BI Ordering provider: Jenny Yoder MD History: . bryce . Comparison: None. Technique: Ultrasound bilateral kidneys. Findings: RIGHT KIDNEY: Measures 11.4x 5.2x 5.4 cm in length which is normal in size. Parapelvic simple Renal c yst is noted which measures 4.1 x 3 x 3.7 cm. echogenic foci are noted which measure 1 x 1 x 0.8 cm m ost likely compressed papilla . Follow-up advised. No renal mass or visualized echogenic stones. Oth erwise, normal echotexture and contour. No hydronephrosis. Normal renal cortical thickness. LEFT KIDNEY: Measures 11.9x 5.9x 3.7 cm in length which is normal in size. Simple Cyst is seen which measures 1.6 x 1.3 x 1.5 cm.. No renal mass or visualized echogenic stones. Otherwise, normal echotex ture and contour. No hydronephrosis. Normal renal cortical thickness. BLADDER: Underfilled. . Enlarged prostate. IMPRESSION: Bilateral renal cysts. Enlarged prostate. Echogenic foci in the right kidney most likely compressed papilla . Follow-up advised. Reviewed, dictated and finalized at location A. IMPRESSION: Bilateral renal cysts. Enlarged prostate. Echogenic foci in the right kidney most likely compressed papilla . Follow-up a dvised.
--- NOTE | ~2024-05-29 | XR_ITS ---
XR chest 2V 05/29/2024 15:35 Indication: Chest pain Procedure: 2 view chest Comparison: Comparison to multiple prior studies sequentially, with oldest reviewed study dated 01/06. Findings: Cardiomegaly. Status post median sternotomy for CABG. There is a prosthetic aortic valve. N o focal air space disease, pulmonary edema, pleural effusion or suspected pneumothorax. There are chandrakant cified granulomas bilaterally. Impression: 1: No acute cardiopulmonary disease. Reviewed, dictated and finalized at location B. Impression: 1: No acute cardiopulmonary disease.
--- NOTE | ~2024-05-29 | CT_ITS ---
EXAMINATION: CTA chest PE protocol DATE: 05/29/2024 18:58 INDICATION: Chest pain. Shortness of breath. TECHNIQUE: Computed tomography (CT) pulmonary angiogram of the chest was performed with 100 mL Omnipa que-350 intravenous contrast. Additional 3D reconstructions utilizing coronal maximum intensity proje ction (MIP) were performed. Automated exposure control and iterative reconstruction technique were em ployed. The dose-length product was 375.11 mGy-cm. COMPARISON: None FINDINGS: No pulmonary embolism. Sensitivity mildly decreased in some of the smaller more peripheral subsegment al pulmonary arteries in the bilateral lower lungs due to some respiratory motion. Bilateral calcified pleural plaques suggesting prior asbestos exposure. No pneumonia, pulmonary edema , pleural effusion or pneumothorax. Heart size is normal. Atherosclerotic coronary artery calcificati ons. Postoperative change of prior median sternotomy and coronary artery bypass grafting. Aortic valv e repair. No pathologically enlarged thoracic lymphadenopathy. Partially visualized anterior plate an d screw fixation at C6-C7 for anterior spinal fusion which extends beyond the cephalad margin of the field of imaging. 4 cm right renal parapelvic cyst. Incompletely visualized infrarenal fusiform abdom inal aortic aneurysm measuring up to at least 3.8 cm. Moderate thoracic spondylosis with bridging ost eophytes at multiple levels consistent with diffuse idiopathic skeletal hyperostosis (DISH). IMPRESSION: 1. No pulmonary embolism or other acute cardiopulmonary disease. Sensitivity mildly decreased in some of the subsegmental pulmonary arteries in the lower lungs due to respiratory motion. 2. Incompletely visualized infrarenal abdominal aortic aneurysm measuring up to at least 3.8 cm. Reviewed, dictated and finalized at location A. IMPRESSION: 1. No pulmonary embolism or other acute cardiopulmonary disease. Sensitivity mi ldly decreased in some of the subsegmental pulmonary arteries in the lower lung s due to respiratory motion. 2. Incompletely visualized infrarenal abdominal aortic aneurysm measuring up to at least 3.8 cm.
--- NOTE | 2024-05-29 15:04 | ECG_ITS ---
Test Date: 2024-05-29 15:12:46 Measurements Intervals [place] Rate: 67 P: 0 IL: 0 QRS: -56 QRSD: 133 T: 103 QT: 406 QTc: 430 Interpretive Statements ATRIAL FLUTTER INTRAVENTRICULAR CONDUCTION DELAY [130+ ms QRS DURATION] LEFT VENTRICULAR HYPERTROPHY AND ST-T CHANGE [VOLTAGE CRITERIA PLUS ST/T ABNORMALITY] No previous ECG available for comparison Electronically Signed On 05-30-2024 09:50:55 CDT by Shayna Khanna M.D.
[2024-05-29 15:34] LABS: Basophils Absolute Auto 0.1 K/mm3 (0.0-0.1); Basophils Percent Auto 0.8 % (0.2-1.2); Eosinophils Absolute Auto 0.1 K/mm3 (0-0.3); Eosinophils Percent Auto 1.7 % (0-4.4); Hematocrit 39.8 % (42.0-52.0); Hemoglobin 13.5 g/dL (14.0-18.0); Immature Granulocyte Absolute 0.03 K/mm3 (0.00-0.031); Immature Granulocyte Percent A 0.4 % (0-0.5); Immature Platelet Fraction Pct 7.4 % (0.9-11.2); Lymphocytes Percent Auto 23.9 % (18.3-44.2); Mean Corpuscular HGB Conc 33.9 g/dl (32-36); Mean Corpuscular Hemoglobin 31.3 pg (26-34); Mean Corpuscular Volume 92.3 fl (80-100); Mean Platelet Volume 11.6 fl (7.4-10.4); Monocytes Absolute Auto 0.6 K/mm3 (0.1-0.6); Monocytes Percent Auto 7.4 % (2.6-8.5); Neutrophils Absolute Auto 5.5 K/mm3 (1.3-6.7); Neutrophils Percent Auto 65.8 % (45.5-73.1); Platelet Count Result 109 k/mm3 (150-375); Red Blood Count 4.31 M/mm3 (4.6-6.20); Red Cell Distribution Width 12.6 % (11.5-14.5); White Blood Count 8.4 K/mm3 (4.5-10.0)
[2024-05-29] MEDS: ASPIRIN 81 MG CHEWABLE TABLET 324 MG PO (15:40)
[2024-05-29 15:47] LABS: Alanine Aminotransferase 18 U/L (6-50); Albumin Level 3.8 g/dL (3.5-5.1); Alkaline Phosphatase 110 U/L (38-126); Anion Gap 10 mmol/L (4-12); Aspartate Amino Transferase 31 U/L (17-59); Bilirubin,Total 0.9 mg/dL (0.2-1.3); Blood Urea Nitrogen 21 mg/dL (9-20); Calcium 9.6 mg/dL (8.4-10.2); Carbon Dioxide 24 mmol/L (22-30); Chloride 103 mmol/L (98-107); Estimated Glomerular Filt Rate 49; Glucose 90 mg/dL (65-110); Lipase 104 U/L (23-300); Potassium 4.2 mmol/L (3.4-5.0); Sodium 137 mmol/L (137-145)
[2024-05-29 15:54] LABS: INR 1.1; Prothrombin Time 14.5 Seconds (11.1-14.7)
[2024-05-29 15:55] LABS: Partial Thromboplastin Time 27.9 Seconds (22.3-36.8)
[2024-05-29 16:02] LABS: Troponin I 0.044 ng/mL (0.000-0.034)
--- NOTE | 2024-05-29 16:47 | ECG_ITS ---
Test Date: 2024-05-29 17:57:54 Measurements Intervals [place] Rate: 66 P: 0 UT: 0 QRS: -51 QRSD: 134 T: 102 QT: 416 QTc: 438 Interpretive Statements ATRIAL FLUTTER LEFT AXIS DEVIATION [QRS AXIS < -30] INTRAVENTRICULAR CONDUCTION DELAY [130+ ms QRS DURATION] LEFT VENTRICULAR HYPERTROPHY AND ST-T CHANGE [VOLTAGE CRITERIA PLUS ST/T ABNORMALITY] Compared to ECG 05/29/2024 15:12:46 NO SIGNIFICANT CHANGES Electronically Signed On 05-30-2024 09:52:18 CDT by Shayna Khanna M.D.
--- NOTE | 2024-05-29 16:51 | ED.GENADULT ---
HPI - General Adult General Chief complaint: Chest Pain Stated complaint: cp and sob Time Seen by Provider: 05/29/24 16:07 History of Present Illness HPI narrative: This is an 83-year-old male history of CABG performed to see presenting for chest pain and difficulty breathing. Chest pain started yesterday describes a pressure in the center of his chest. It is nonradiating. Mild in intensity. It comes and goes. He has never had pain like this before. The pain is exacerbated by exertion. It completely resolves with rest. He is not currently in any pain. Patient does not typically have anginal symptoms. Patient denies fevers, nausea, vomiting, diarrhea, viral symptoms productive cough lower extremity edema. No history of CHF. Related Data Home Medications Medication Instructions Recorded Confirmed amlodipine 5 mg tablet 5 mg PO DAILY 03/12/20 12/12/23 atorvastatin 80 mg tablet 80 mg PO HS 03/12/20 12/12/23 brimonidine 0.2 % eye drops 1 drp ophthalmic (eye) BID 03/12/20 12/12/23 latanoprost 0.005 % eye drops 1 drp ophthalmic (eye) HS 03/12/20 12/12/23 lisinopril 40 mg tablet 40 mg PO DAILY 03/12/20 12/12/23 metoprolol succinate 50 mg 50 mg PO DAILY 03/12/20 12/12/23 tablet,extended release 24 hr (Toprol XL) timolol maleate 0.25 % eye drops 1 drp RIGHT EYE BID 03/12/20 12/12/23 Allergies Allergy/AdvReac Type Severity Reaction Status Date / Time No Known Allergies Allergy Verified 12/12/23 13:09 FOR[facility], [facility] Past Medical History Medical History Coronary artery disease Diverticulitis Glaucoma Glaucoma associated with unspecified ocular disorder Hyperlipidemia Hypertension Osteoarthritis Surgical History Surgical History History of aortic valve replacement (~12/2018) Performed at the time of his 4 vessel CABG. History of appendectomy History of bilateral cataract extraction History of cervical spinal surgery History of four vessel coronary artery bypass graft (~12/2018) Done at [facility] in [facility]. History of total bilateral knee replacement Family History Family History Other Hypertension Social History Social History Social History: The patient lives in [place] with his daughter, son-in-law, and 2 grandchildren. 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 He smoked up to a pack of cigarettes per day, and now smokes less than half a pack a day. He has been a smoker for about 60 years. No alcohol or drug abuse. He designates his daughter, Sultana Santoyo, as his surrogate decision maker and he wishes to be a full code. Smoking packs per day: 0.5 Smoking cigarettes per day: 10.0 Years smoked: 60 Smoking pack-years: 30.00 Smoking status: Current every day smoker (Does not want to quit) Tobacco type: cigarettes Alcohol intake: never Substance use: never Substance use type: does not use Gender identity (if verbalized by the patient): Male Spiritual care concerns: No Exam Narrative: APPEARANCE: No apparent distress. A&O times Head: atraumatic. EYES: EOMI, NOSE: Atraumatic NECK: Trachea midline RESPIRATORY: No increased rate of breathing clear to auscultation CARDIOVASCULAR: RRR, no peripheral edema ABDOMINAL: Non-distended soft nontender MUSCULOSKELETAl: No obvious deformities NEURO: Alert. Moving 4/4 extremities SKIN:: Warm, dry. Normal color PSYCHIATRIC: Normal affect Course Vital Signs Vital signs: Vital Signs Pulse Rate 68 05/29/24 15:11 Respiratory Rate 17 05/29/24 15:11 Blood Pressure 148/98 H 05/29/24 15:11 Pulse Oximetry 99 05/29/24 15:11 Temperature 98.2 F 05/29/24 15:14 Pulse Rate 68 05/29/24 15:35 Respiratory Rate 21 H 05/29/24 15:35 Blood Pressure 132/98 H 05/29/24 15:28
[2024-05-29 17:36] LABS: D Dimer 2.53 ug/mL (<0.48)
[2024-05-29 18:05] LABS: Influenza A QL RT-PCR Negative (Negative); Influenza B QL RT-PCR Negative (Negative); RSV RNA, RT-PCR Negative (Negative); SARS-CoV-2 RNA PCR Negative (Negative)
[2024-05-29 18:43] LABS: Troponin I 0.042 ng/mL (0.000-0.034)
--- NOTE | 2024-05-29 20:28 | PM.IMHP ---
H&P: HPI History of Present Illness Date/Time: 05/29/24 20:28 Chief Complaint: chest discomfort Narrative: This is an 83-year-old male with past medical history significant for coronary artery disease status post coronary artery bypass graft, hypertension, degenerative joint disease, valve replacement of aortic valve. patient presents to the emergency room due to chest discomfort describes as pressure-like retrosternal with radiation to the neck denies lightheadedness had shortness of breath with minimal activity such walking distance within the house, no palpitations, no syncope, no near syncope no lightheadedness, no cough no sputum production no fevers no rigors no chills no leg swelling no ankle swelling. patient was found to have atrial flutter emergency room preliminary workup has been significant for troponins x3 0.0440/0420/045, creatinine was 1.4 patient tested negative for influenza type A type B RSV and COVID. placed in observation for further evaluation management and treatment. XR chest 2V 05/29/2024 15:35 Indication: Chest pain Procedure: 2 view chest Comparison: Comparison to multiple prior studies sequentially, with oldest reviewed study dated 01/06/2019. Findings: Cardiomegaly. Status post median sternotomy for CABG. There is a prosthetic aortic valve. No focal air space disease, pulmonary edema, pleural effusion or suspected pneumothorax. There are calcified granulomas bilaterally. Impression: 1: No acute cardiopulmonary disease. EXAMINATION: CTA chest PE protocol DATE: 05/29/2024 18:58 INDICATION: Chest pain. Shortness of breath. TECHNIQUE: Computed tomography (CT) pulmonary angiogram of the chest was performed with 100 mL Omnipaque-350 intravenous contrast. Additional 3D reconstructions utilizing coronal maximum intensity projection (MIP) were performed. Automated exposure control and iterative reconstruction technique were employed. The dose-length product was 375.11 mGy-cm. COMPARISON: None FINDINGS: No pulmonary embolism. Sensitivity mildly decreased in some of the smaller more peripheral subsegmental pulmonary arteries in the bilateral lower lungs due to some respiratory motion. Bilateral calcified pleural plaques suggesting prior asbestos exposure. No pneumonia, pulmonary edema, pleural effusion or pneumothorax. Heart size is normal. Atherosclerotic coronary artery calcifications. Postoperative change of prior median sternotomy and coronary artery bypass grafting. Aortic valve repair. No pathologically enlarged thoracic lymphadenopathy. Partially visualized anterior plate and screw fixation at C6-C7 for anterior spinal fusion which extends beyond the cephalad margin of the field of imaging. 4 cm right renal parapelvic cyst. Incompletely visualized infrarenal fusiform abdominal aortic aneurysm measuring up to at least 3.8 cm. Moderate thoracic spondylosis with bridging osteophytes at multiple levels consistent with diffuse idiopathic skeletal hyperostosis (DISH). IMPRESSION: 1. No pulmonary embolism or other acute cardiopulmonary disease. Sensitivity mildly decreased in some of the subsegmental pulmonary arteries in the lower lungs due to respiratory motion. 2. Incompletely visualized infrarenal abdominal aortic aneurysm measuring up to at least 3.8 cm. Review of Systems Review of Systems: chest pressure [facility] Past Medical History Medical History Coronary artery disease Diverticulitis Glaucoma Glaucoma associated with unspecified ocular disorder Hyperlipidemia Hypertension Osteoarthritis Surgical History Surgical History History of aortic valve replacement (~12/2018) Performed at the time of his 4 vessel CABG. History of appendectomy History of bilateral cataract extraction History of cervical spinal surgery History of four vessel coronary artery bypass graft (~12/2018)
--- NOTE | 2024-05-29 21:21 | ADMGEN ---
This patient, Carlos Hernandez, was admitted to IMU Room 206-01 at 2115. Patient/family oriented to hospital policies and general routines including ID bracelet, bed and alarms, visiting hours, pain management, procedures, bathroom and other care routines, personal items, smoking policy, room service/diet, and visiting hours. Information on how to activate the Rapid Response Team has been discussed. Patient/Family are encouraged to report perceived risks to care and to ask questions if they do not understand what they are told or what they should do.
[2024-05-29] MEDS: ENOXAPARIN 100 MG/ML SYRINGE 90 MG SUB-Q (21:36)
[2024-05-29 21:57] LABS: Troponin I 0.045 ng/mL (0.000-0.034)
[2024-05-30] VITALS (13 sets, daily range): BP systolic 109–155; BP diastolic 62–83; PULSE 40–69; RESP 16–28; TEMP 36.2–36.9; O2SAT 96–98
--- NOTE | 2024-05-30 | ECHO_ITS ---
Patient Info Name: Carlos Hernandez Age: 83 years : 1940 Gender: Male Ht: 70 in Wt: 187 lbs BSA: 2.06 m2 HR: 63 bpm BP: 101 / 60 mmHg Heart Rhythm: Atrial Flutter Technical Quality: Fair Exam Date: 05/30/2024 10:12 AM Exam Location: Echo Lab Patient Status: Inpatient Admit Date: 05/29/2024 Staff Ordering Physician: Satya Villarreal NP Speech Instructor: Yaz Navarro DEREK Attending Provider: Jenny Yoder MD Referring Physician: Phil ARVIZU; Exam Type: CA echo doppler limited Study Info Indications - Atrial Flutter Limited two-dimensional transthoracic echocardiogram is performed with contrast. Contrast/Agitated Saline Contrast/Ag. Saline: Definity Amount: 2.00 ml IV Access Condition: patent with no signs of infiltration Summary 1. Left ventricular chamber dimension is normal. 2. Left ventricular systolic function is normal, estimated at 55-60%. 3. There is moderately increased left ventricular wall thickness. 4. Left ventricular septal wall motion is abnormal with septal motion related to a post-operative state. 5. The bioprosthetic valve appears well-seated. Mean gradient of 7mmHg. Peak velocity of 2.04 m/s. 6. There is mild tricuspid valve regurgitation. Left Ventricle Left ventricular chamber dimension is normal. Left ventricular systolic function is normal, estimated at 55-60%. There is moderately increased left ventricular wall thickness. Left ventricular septal wall motion is abnormal with septal motion related to a post-operative state. Right Ventricle Right ventricular chamber dimension is normal. Aortic Valve The bioprosthetic valve appears well-seated. Mean gradient of 7mmHg. Peak velocity of 2.04 m/s. Pulmonic Valve The pulmonic valve is not well visualized. There is trace pulmonic regurgitation. Mitral Valve There is trace mitral valve regurgitation. The mitral valve annulus is severely calcified. Tricuspid Valve There is mild tricuspid valve regurgitation. Pericardium/Pleural There is no pericardial effusion. Aorta The aortic root size at the sinus of Valsalva is normal. Left Ventricular Outflow Tract Name Value Normal LVOT 2D LVOT Diameter 2.01 cm LVOT Doppler LVOT Peak Gradient 3 mmHg LVOT Mean Gradient 1 mmHg LVOT VTI 13.13 cm LVOT VTI/AV VTI Ratio 0.45 LVOT Stroke Volume 41.78 ml LVOT CO 2.66 l/min LVOT CI 1.29 L/min/m2 Mitral Valve Name Value Normal MV Doppler MV [place] 582.42 cm/s2 MV PHT 0 s MV Area (PHT) 4.73 cm2 4.00-5.00 MV Diastolic Function MV E Peak Velocity 93.47 cm/s
--- NOTE | 2024-05-30 08:26 | PC.NURSE ---
Pt with non-sustained bradycardia with a heart rate of 30. Pt laying in bed. Reported some minimal shortness of breath, which resolved. Pt is in AFlutter. Provider LESLY Goodman aware of bradycardia.
--- NOTE | 2024-05-30 10:28 | PM.CNCAR ---
Assessment and Plan Assessment and plan (1) Atrial flutter: Code(s): I48.92 - Unspecified atrial flutter Status: Acute Assessment and Plan: The atrial flutter is a new diagnosis for Carlos. No issues with RVR noted thus far on telemetry, however, he is having intermittent symptomatic bradycardia with heart rates as low as 30s, noted while he was awake as well. I am going to stop his Metoprolol completely and monitor on telemetry. Avoid AV mason blocking agents. Will check a TSH level. If he continues to have issues with bradycardia despite discontinuation of beta shyam, he may need a pacemaker given sinus node dysfunction. Echocardiogram from January 2024 showed LVEF 55-60%, normal bioprosthetic valve function. Will obtain limited TTE to re-evaluate LVEF. (2) Elevated troponin: Code(s): R79.89 - Other specified abnormal findings of blood chemistry Status: Acute Assessment and Plan: Minimally elevated troponins and flat. Has chronically elevated troponins; these levels are lower compared to the previous ones in our system). EKG with atrial flutter, LVH with secondary repolarization changes, no ischemic changes. Does not appear to be an acute coronary syndrome. Will obtain limited TTE to re-evaluate LVEF, assess for wall motion abnormalities. (3) Coronary artery disease: Code(s): I25.10 - Atherosclerotic heart disease of [place] coronary artery without angina pectoris Status: Acute Assessment and Plan: Continue ASA, high intensity statin. (4) Hypertension: Qualifiers: Hypertension type: essential hypertension Qualified Code(s): I10 - Essential (primary) hypertension Code(s): I10 - Essential (primary) hypertension Status: Acute Assessment and Plan: Continue Lisinopril, Amlodipine. Stopping Metoprolol due to bradycardia. (5) Hyperlipidemia: Qualifiers: Hyperlipidemia type: other hyperlipidemia Qualified Code(s): E78.49 - Other hyperlipidemia Code(s): E78.5 - Hyperlipidemia, unspecified Status: Acute Assessment and Plan: Continue high intensity statin. (6) Heart failure with improved ejection fraction (HFimpEF): Code(s): I50.32 - Chronic diastolic (congestive) heart failure Status: Acute Assessment and Plan: Has baseline NYHA class II symptoms per his primary bunch maker notes. Echocardiogram from January 2024 showed LVEF 55-60%, normal bioprosthetic valve function. Will obtain limited TTE to re-evaluate LVEF. Continue Lisinopril. Stopping Metoprolol due to bradycardia as noted above. History of Present Illness History of Present Illness Consult date/time: 05/30/24 10:28 Requesting physician: Burke Loja MD Consult reason: Other (Elevated troponin) Reason For Visit: Atrial Flutter Narrative: This is an 83 year old male with the following history: 1. Coronary artery disease, NSTEMI s/p CABG x 3 (ZARAGOZA to LAD, SVG to PDA, SVG to Diagonal with sequential to OM) by Dr. Blank December 2018. 2. Severe aortic valve regurgitation s/p bioprosthetic AVR with a 27mm Magna Ease aortic bioprosthetic valve 3. Heart failure with mildly reduced LVEF of 42% per TTE 03/2019, with improvement in LVEF to 55-60% per TTE January 2024. Has baseline NYHA class II symptoms. 4. Hypertension 5. Marked bradycardia noted on EKG 08/2023 -- sinus bradycardia with heart rate 40 beats per minute. Had associated fatigue. Metoprolol dosing was decreased to 25mg once daily. Had improvement in fatigue following the dose reduction in Metoprolol. Carlos's primary bunch maker is Dr. Fraga at [facility]. He last saw them in December 2023. Carlos presented to [facility] for exertional shortness of breath and feeling of heart beating fast. Carlos has baseline NYHA class II symptoms with shortness of breath after walking some distance, however, since Monday, he has had more pronounced exertional shortness of breath with an associated feeling of his h
[2024-05-30] MEDS: amLODIPine BESYLATE 5 MG TABLET PO (11:24)
[2024-05-30] MEDS: ENOXAPARIN 100 MG/ML SYRINGE 90 MG SUB-Q ×2 (11:24→20:22)
[2024-05-30] MEDS: BRIMONIDINE TARTRATE 0.2% OP SOLN 5 ML BTL 1 DROP EACH EYE ×2 (11:24→20:22)
[2024-05-30 11:37] LABS: Anion Gap 8 mmol/L (4-12); Blood Urea Nitrogen 21 mg/dL (9-20); Calcium 9.4 mg/dL (8.4-10.2); Carbon Dioxide 24 mmol/L (22-30); Chloride 105 mmol/L (98-107); Estimated CRCL calculation 41 ml/min; Estimated Glomerular Filt Rate 53; Glucose 86 mg/dL (65-110); Potassium 4.2 mmol/L (3.4-5.0); Sodium 137 mmol/L (137-145)
[2024-05-30] MEDS: PERFLUTREN LIPID MICROSPHERES 1.5 ML VIAL DILUTED TO 10 ML TOTAL VOLUME IV PUSH (13:40)
--- NOTE | 2024-05-30 13:41 | IVDEFINITY ---
Prior to administration of IV Definity the patient was educated on the risks and benefits of the imaging enhancing agent including potential adverse side effects. The patient verbalized understanding. Allergies were verified. No exclusion criteria were identified and at least one of the following inclusion criteria were met: 1) physician request, 2) patient technically difficult to image (per the [place] [employer] guidelines of two or more segments not discernable within the apical view), or 3) questionable left ventricular function. ?
--- NOTE | 2024-05-30 15:05 | PM.IMPN ---
Progress Note: A&P Assessment and Plan (1) Atrial flutter: Code(s): I48.92 - Unspecified atrial flutter Status: Acute Assessment and Plan: - New episode. - EKG showing A-Flutter. - Telemetry with juan episodes, as low as 28. - Patient reports Metoprolol dose was decreased a few months ago per his acquisitions editor at [facility]. - Monitoring Tech consulted. - Hold metoprolol for now. - Continue tele monitoring. - May need pacemaker if continues with bradycaradia episodes after BB dc'd per acquisitions editor. - TTE showing EF 55-60 % with aortic bioprosthetic valve well seated. - Further mgt per acquisitions editor. (2) Chest discomfort: Code(s): R07.89 - Other chest pain Status: Acute Assessment and Plan: - Possibly related to # 1 above. - Reports much improvement in symptoms. - Further mgt as above. - Monitoring Tech following. (3) Elevated troponin: Code(s): R79.89 - Other specified abnormal findings of blood chemistry Status: Acute Assessment and Plan: - Appears chronically elevated and current levels lower than previous. - Low-suspicion for ACS. - Monitoring Tech following. - Further mgt per acquisitions editor. - Continue tele monitoring. (4) Coronary artery disease: Code(s): I25.10 - Atherosclerotic heart disease of [place] coronary artery without angina pectoris Status: Acute Assessment and Plan: - Continue statin. - Unsure why patient not on aspirin. - Hold metoprolol with juan episodes. (5) Hypertension: Qualifiers: Hypertension type: essential hypertension Qualified Code(s): I10 - Essential (primary) hypertension Code(s): I10 - Essential (primary) hypertension Status: Acute Assessment and Plan: - Currently well controlled. - Continue amlodipine. - Hold metoprolol with bradycardia. (6) Hyperlipidemia: Qualifiers: Hyperlipidemia type: other hyperlipidemia Qualified Code(s): E78.49 - Other hyperlipidemia Code(s): E78.5 - Hyperlipidemia, unspecified Status: Acute Assessment and Plan: Continue statin. (7) Tobacco abuse: Code(s): Z72.0 - Tobacco use Status: Acute Assessment and Plan: - Encouraged with cessation. - Nicotine patch PRN. Plan DVT PPx: SCD's. Time Spent With Patient Time with patient: 25 - 35 minutes Subjective Date/time seen: 05/30/24 10:05 Interval history: Patient presented to the ER with chest discomfort associated with fatigue. Patient was noted to be in new-flutter, which is new to him. He's been admitted for further work-up, including acquisitions editor evaluation. Patient currently comfortable on bedrest and states feels much better. Pt reports his symptoms started about 3 days ago and he's been getting tired just performing minimal tasks. Review of Systems Review of Systems: All systems reviewed & are unremarkable except as noted in HPI and below Exam Const: Other: Well appearing elderly gentleman in no acute distress. HENMT: Face/Nose/Sinus: Normal nares present Mouth: Yes moist mucous membranes Other: Atraumatic, PERRL, EOM Eyes: General: appearance normal, both eyes and all related structures Neck: Neck: supple Resp: Effort & Inspection: normal respiratory effort Auscultation: clear to auscultation bilaterally Cardio: Other: Irregularly irregular GI: GI Palp: Yes Soft to palpation Auscultation: normal bowel sounds Other: Non-tender Skin: General skin exam: normal color Wounds: no wounds Neuro: General: gait normal Speech: normal speech Motor exam (neuro): 5/5 motor strength present throughout Sensory Exam: normal sensation Extrem: General: normal to inspection Psych: Mental Status: mental status grossly normal Affect: normal affect Other: Pleasant and co-operative Objective Data Vital Signs Vital Signs: Vital Signs - 24 hr 05/29/24 15:14 05/29/24 15:11 05/29/24 15:16 Temperature 98.2
[2024-05-30] MEDS: hydrALAZINE HCL 20 MG/ML VIAL 10 MG IV PUSH (17:42)
[2024-05-30] MEDS: ACETAMINOPHEN 500 MG TABLET 1000 MG PO (20:20)
[2024-05-30] MEDS: ATORVASTATIN 40 MG TABLET 80 MG PO (20:21)
[2024-05-30] MEDS: LATANOPROST 0.005% OP SOLN 2.5 ML BTL 1 DROP EACH EYE (20:22)
[2024-05-31] VITALS (9 sets, daily range): BP systolic 124–154; BP diastolic 63–80; PULSE 36–104; RESP 16–20; TEMP 36.1–36.3; O2SAT 96–98
--- NOTE | 2024-05-31 08:28 | PM.PNCARD ---
Progress Note: A&P Assessment and Plan (1) Atrial flutter: Code(s): I48.92 - Unspecified atrial flutter Status: Acute Plan This is an 83-year-old man with newly diagnosed atrial flutter with slow ventricular response. Clearly he has AV node dysfunction and heart rate has improved with withdrawal of his beta-shyam. At this point the patient does not require implantation of a pacemaker device here. He will be systemically anticoagulated with apixaban and needs to arrange short interval follow-up with his tanning salon attendant at [facility] Discussed with patient long-term management strategy options are anticoagulation with rate control versus aggressive attempt at restoring sinus rhythm with ablation and potentially having to implant a pacemaker if his sinus rate is slow. At this point he should be stable enough follow-up with his established physicians at [facility] at a shorter interval and make these decisions regarding long-term management of his atrial flutter. Juan Deal MD [facility] Subjective Date/time seen: Date of service: 05/31/24 08:28 Interval history: Follow-up visit in this 83-year-old man with: Coronary artery disease, previous bypass grafting, aortic regurgitation status post previous aortic valve replacement in 2019. New diagnosis of atrial flutter with slow ventricular response. Patient is admitted with symptoms of APARICIO. He feels better this morning his heart rate is in the mid 60s after discontinuance of metoprolol. Exam Const: General: comfortable and no acute distress Other: Elderly white male appearing a bit younger than his stated age otherwise comfortable cooperative no distress HENMT: Mouth: Yes moist mucous membranes Eyes: Sclera: sclerae normal Neck: Neck: supple and no JVD Resp: Effort & Inspection: normal respiratory effort Auscultation: clear to auscultation bilaterally Cardio: Rate: regular rate Rhythm: abnormal rhythm irregularly irregular GI: GI Palp: Yes Soft to palpation Skin: General skin exam: normal color Neuro: Other: Alert and oriented x3 Extrem: Other: Good perfusion, no edema Objective Data Vital Signs Vital Signs: Vital Signs - 24 hr 05/30/24 10:00 05/30/24 12:00 05/30/24 12:00 Temperature 36.7 C Pulse Rate 68 66 66 Respiratory Rate 20 Blood Pressure 109/83 Pulse Oximetry 98 Oxygen Delivery 05/30/24 12:00 05/30/24 14:00 05/30/24 16:00 Temperature 36.9 C Pulse Rate 69 60 Respiratory Rate 24 H Blood Pressure 115/62 Pulse Oximetry 98 Oxygen Delivery Room Air 05/30/24 16:00 05/30/24 16:00 05/30/24 18:00 Temperature Pulse Rate 64 64 Respiratory Rate Blood Pressure Pulse Oximetry Oxygen Delivery Room Air 05/30/24 19:59 05/30/24 20:00 05/30/24 20:00 Temperature 36.2 C L Pulse Rate 65 66 Respiratory Rate 20 Blood Pressure 136/69 Pulse Oximetry 97 Oxygen Delivery Room Air 05/30/24 22:00 05/31/24 00:00 05/31/24 00:00 Temperature 36.3 C L Pulse Rate 40 L 104 H 54 L Respiratory Rate 16 Blood Pressure 125/68 Pulse Oximetry 97 Oxygen Delivery 05/31/24 00:00 05/31/24 02:00 05/31/24 04:00 Temperature 36.1 C L Pulse Rate 36 L 66 Respiratory Rate 16 Blood Pressure 131/63 Pulse Oximetry 96 Oxygen Delivery Room Air 05/31/24 04:00 05/31/24 04:00 05/31/24 06:00 Temperature Pulse Rate 65 67 Respiratory Rate Blood Pressure Pulse Oximetry Oxygen Delivery Room Air 05/31/24 07:27 Temperature 36.3 C L Pulse Rate 66 Respiratory Rate 18 Blood Pressure 154/80 H Pulse Oximetry 96 Oxygen Delivery Intake/Output Intake/Output: Intake & Output 05/28/24 05/29/24 05/30/24 05/31/24 23:59 23:59 23:59 23:59 Intake Total 680 300 Output Total 950 575 Balance -270 -028 Meds/Results Medications: Active Medications Generic Name Dose Route Start Last Admin Trade Name Freq PRN Reason Stop Do
[2024-05-31] MEDS: amLODIPine BESYLATE 5 MG TABLET PO (08:49)
[2024-05-31] MEDS: BRIMONIDINE TARTRATE 0.2% OP SOLN 5 ML BTL 1 DROP EACH EYE (08:54)
--- NOTE | 2024-05-31 12:42 | PM.DS ---
DS: Admitting Diagnosis Discharge Date 05/31/2024 Admitting Diagnosis Chest discomfort DS: Discharge Diagnosis Discharge Diagnosis (1) Atrial flutter: Code(s): I48.92 - Unspecified atrial flutter Status: Acute Assessment and Plan: - Rate better controlled with Metoprolol discontinuation. - Tele showing A-Flutter trending 60's. - Patient cleared by tub tender for discharge to f/u with his own tub tender for long-term rate control. - Continue Eliquis for anticoagulation. - TTE down showed EF 55-60 % with aortic bioprosthetic valve well seated. - Patient asymptomatic prior to discharge. (2) Chest discomfort: Code(s): R07.89 - Other chest pain Status: Acute Assessment and Plan: - Possibly related to # 1 above. - Symptoms resolved. - Further mgt as above. - Patient to f/u with his own tub tender. (3) Elevated troponin: Code(s): R79.89 - Other specified abnormal findings of blood chemistry Status: Acute Assessment and Plan: - Appears chronically elevated and current levels lower than previous. - Low-suspicion for ACS. - Seen by [employer].. - No further work-up recommended per tub tender. (4) Coronary artery disease: Code(s): I25.10 - Atherosclerotic heart disease of [place] coronary artery without angina pectoris Status: Acute Assessment and Plan: - Continue Eliquis and statin. - Hold metoprolol due to bradycardia episodes. (5) Hypertension: Qualifiers: Hypertension type: essential hypertension Qualified Code(s): I10 - Essential (primary) hypertension Code(s): I10 - Essential (primary) hypertension Status: Acute Assessment and Plan: - Well controlled inpatient. - Continue amlodipine and lisinopril. - Hold metoprolol with bradycardia. (6) Hyperlipidemia: Qualifiers: Hyperlipidemia type: other hyperlipidemia Qualified Code(s): E78.49 - Other hyperlipidemia Code(s): E78.5 - Hyperlipidemia, unspecified Status: Acute Assessment and Plan: Continue statin. (7) Tobacco abuse: Code(s): Z72.0 - Tobacco use Status: Acute Assessment and Plan: - Encouraged with cessation. DS: Summary Hospital Course Hospital Course: Patient presented with reports of chest discomfort and some fatigue. Patient also reported a reduction in his dose of metoprolol recently from 50 mg daily to 25 mg daily. Patient was noted to be in A-Flutter ranging 30's-90's and his metoprolol held inpatient. Patient was seen by tub tender and ECHO done, showing EF 55-60 % with aortic bioprosthetic valve well seated. Rate was well controlled prior to discharge and patient was discharged on Eliquis for anticoagulation but no rate control agent with episodes of bradycardia. No distress noted or reported prior to discharge. Status at Discharge Functional status at discharge: independent ambulation Overall status at discharge: patient is back to baseline Time Spent with Patient Time attestation: Total time spent providing and/or coordinating discharge services: Exam Narrative: Seated on bedrest. Const: General: cooperative, comfortable, no acute distress, well developed, alert, awake, average body habitus and thin Nutritional Appearance: average body habitus and thin Orientation/consciousness: patient oriented x3 Other: Well appearing elderly gentleman in no acute distress. HENMT: Head: normal to inspection, normocephalic and atraumatic Ears: hearing grossly normal bilaterally Face/Nose/Sinus: Normal nares present and normal facial exam Face and sinus: normal facial exam Mouth: Yes moist mucous membranes Other: Atraumatic, PERRL, EOM Eyes: General: appearance normal, both eyes and all related structures Pupils: Equal, round and reactive pupils present EOM: EOMs intact bilaterally Neck: Neck: full ROM, no lymphadenopathy, supple and no JVD Thyroid: thyroid normal Lym
== END 2024-05-31 14:03 | disposition home or self-care (01) | DRG 309 ==
LOC: ANHED 19:59 → ANHIMU 20:44
PROVIDERS: Emergency Medicine; Internal Medicine; Admitting Provider Internal Medicine; Emergency Provider Emergency Medicine; PCP Internal Medicine; Visit Provider Nurse Practitioner Adult Health
DX: I48.92 Unspecified atrial flutter (principal); I13.0 Hypertensive heart and chronic kidney disease with heart failure and stage 1 through stage 4 chronic kidney disease, or unspecified chronic kidney disease; N17.9 Acute kidney failure, unspecified; I50.32 Chronic diastolic (congestive) heart failure; I25.10 Atherosclerotic heart disease of native coronary artery without angina pectoris; N18.9 Chronic kidney disease, unspecified; E78.5 Hyperlipidemia, unspecified; K57.30 Diverticulosis of large intestine without perforation or abscess without bleeding; H40.9 Unspecified glaucoma; M19.90 Unspecified osteoarthritis, unspecified site; F17.210 Nicotine dependence, cigarettes, uncomplicated; Z20.822 Contact with and (suspected) exposure to COVID-19; Z96.653 Presence of artificial knee joint, bilateral; Z95.2 Presence of prosthetic heart valve; Z95.1 Presence of aortocoronary bypass graft
CPT/HCPCS: 36415; 71046; 71275; 76775; 80048; 80053; 83690; 84443; 84484; 85025; 85055; 85380; 85610; 85730; 87637; 93005; 99285; A9270; J0360; J1650; Q9957; Q9967

== ENCOUNTER 2024-06-24 12:04 | Outpatient (CLI) | payer MEDICARE, SELFPAY ==
[2024-06-24 12:33] LABS: Basophils Absolute Auto 0.1 K/mm3 (0.0-0.1); Basophils Percent Auto 0.8 % (0.2-1.2); Eosinophils Absolute Auto 0.2 K/mm3 (0-0.3); Eosinophils Percent Auto 2.6 % (0-4.4); Hematocrit 41.2 % (42.0-52.0); Hemoglobin 13.4 g/dL (14.0-18.0); Immature Granulocyte Absolute 0.02 K/mm3 (0.00-0.031); Immature Granulocyte Percent A 0.2 % (0-0.5); Immature Platelet Fraction Pct 7.5 % (0.9-11.2); Lymphocytes Absolute Auto 1.96 K/mm3 (0.9-3.2); Lymphocytes Percent Auto 22.4 % (18.3-44.2); Mean Corpuscular HGB Conc 32.5 g/dl (32-36); Mean Corpuscular Hemoglobin 30.5 pg (26-34); Mean Corpuscular Volume 93.8 fl (80-100); Mean Platelet Volume 11.4 fl (7.4-10.4); Monocytes Absolute Auto 0.7 K/mm3 (0.1-0.6); Monocytes Percent Auto 8.1 % (2.6-8.5); Neutrophils Absolute Auto 5.8 K/mm3 (1.3-6.7); Neutrophils Percent Auto 65.9 % (45.5-73.1); Platelet Count Result 117 k/mm3 (150-375); Red Blood Count 4.39 M/mm3 (4.6-6.20); Red Cell Distribution Width 12.6 % (11.5-14.5); White Blood Count 8.7 K/mm3 (4.5-10.0)
[2024-06-24 12:40] LABS: Anion Gap 9 mmol/L (4-12); Blood Urea Nitrogen 19 mg/dL (9-20); Calcium 9.7 mg/dL (8.4-10.2); Carbon Dioxide 28 mmol/L (22-30); Chloride 100 mmol/L (98-107); Estimated Glomerular Filt Rate 53; Glucose 101 mg/dL (65-110); Potassium 4.1 mmol/L (3.4-5.0); Sodium 137 mmol/L (137-145)
== END 2024-06-24 12:05 | disposition home or self-care (01) ==
PROVIDERS: PCP Internal Medicine
DX: Z01.812 Encounter for preprocedural laboratory examination (principal); I48.92 Unspecified atrial flutter
CPT/HCPCS: 36415; 80048; 85025; 85055

== ENCOUNTER 2025-04-24 12:43 | Outpatient (CLI) | payer MEDICARE, SELFPAY ==
--- OUTSIDE RECORDS SUMMARY | 2025-04-24 12:46 | XMS_ITS | Clinical Summary ---
Author Organization [facility] [place] [address] Address [address] [place] [address] Care Team Providers Care Tobacco Farmworker Name Role Phone Harry Lomeli Primary Care Provider [phone] Allergies No known active allergies Medications latanoprost (XALATAN) 0.005 % ophthalmic solution Administer 1 drop into both eyes nightly Active acetaminophen (TYLENOL ORAL) Take by mouth 2 (two) times a day as needed 3 tabs every morning Active IBUPROFEN ORAL Take by mouth every 6 (six) hours as needed for pain Active brimonidine (ALPHAGAN) 0.2 % ophthalmic solution 1 drop 3 Active apixaban (ELIQUIS) 5 mg tablet Take 1 tablet (5 mg total) by mouth 2 (two) times a day 180 tablet 3 4 Active amLODIPine (NORVASC) 5 mg tablet Take 1 tablet (5 mg total) by mouth daily 90 tablet 3 4 Active atorvastatin (LIPITOR) 80 mg tablet Take 1 tablet (80 mg total) by mouth nightly 90 tablet 3 4 Active lisinopriL (PRINIVIL,ZESTR IL) 40 mg tablet Take 0.5 tablets (20 mg total) by mouth daily 4 Active Active Problems Problem Noted Date Diagnosed Date Paroxysmal atrial flutter 06/12/2024 Impacted cerumen of left ear 08/10/2023 Sensorineural hearing loss (SNHL) of both ears 1 LV dysfunction 03/05/2020 Hyperlipidemia 07/23/2019 S/P AVR (aortic valve replacement) 07/23/2019 Hx of CABG 07/23/2019 Thrombocytopenia 01/14/2019 Assessment & Plan (01/17/2019 12:03 PM CDT): Plt count 176, up from 146. Likely 2/2 recent cardiac surgery. No signs of bleeding. -no indication for transfusion at this time -If plts downtrend, consider sending HIT panel - continue heparin SQ at this time Assessment & Plan (01/14/2019 4:00 PM CDT): Plt count 80. Likely 2/2 recent cardiac surgery. No signs of bleeding. -no indication for transfusion at this time -If plts continue to downtrend, consider sending HIT panel Myocardial stunning 01/12/2019 Assessment & Plan (01/17/2019 12:01 PM CDT): Continue metoprolol, dose increased Assessment & Plan (01/13/2019 2:24 PM CDT): Post-op echo with normal biventricular function off bypass. Epi weaned to off yesterday. 1300 UOP marginal and MAPs marginal ~ 60-65. -check Scvo2 Assessment & Plan (01/12/2019 4:56 PM CDT): Post-op echo with normal biventricular function off bypass on Epi 0.02 -Start Epi wean once extubated Q4 for ScVO2 >60 Assessment & Plan (01/12/2019 1:41 AM CDT): Post-op echo with normal biventricular function off bypass on Epi 0.02 -Start Epi wean once extubated Q6 for ScVO2 >65 Acute pulmonary insufficiency 01/12/2019 Assessment & Plan (01/16/2019 3:05 PM CDT): Baseline COPD -weaned to RA -Continue ambulation and out of bed to chair -Continue to push pulmonary hygiene Assessment & Plan (01/14/2019 4:09 PM CDT): Baseline COPD. Remains on NC. CXR with LLL haziness likely mucous plug with collapse, now improving. Started on CPT, patient ambulating and out of bed to chair. CPT discontinued overnight. -wean O2 to keep sats >92% -OOBTC when able -pulmonary hygiene -Lasix 20mg IV x1 for negative FB Assessment & Plan (01/14/2019 1:50 AM CDT): Baseline COPD. Remains on NC. CXR with LLL haziness likely mucous plug with collapse, now improving this evening. Started on CPT, patient ambulating and out of bed to chair today. -wean O2 to keep sats >92% -OOBTC when able -pulmonary hygiene Assessment & Plan (01/13/2019 2:17 PM CDT): Baseline COPD. Extubated solicitor patent. Remaining on NC this evening. CXR with LLL haziness likely mucous plug with collapse, stable. -wean O2 to keep sats >92% -Chest PT QID -OOBTC when able -pulmonary hygiene Assessment & Plan (01/13/2019 2:36 AM CDT): Baseline COPD. Extubated solicitor patent. Remaining on NC this evening. CXR with LLL haziness likely mucous plug with collapse, stable. -wean O2 to keep sats >92% -OOBTC when able -pulmonary hygiene -hold diuresis at this time with metabolic acidosis overnight Assessment & Plan (01/12/2019 4:53 PM CDT): Baseline COPD. Reported easy airway. Extubated to 6L NC this am. -wean O2 to keep sats >92% -OOBTC when able -pulmonary hygiene -hold diuresis at this time with base excess -5 and lactate ~4 Assessment & Plan (01/12/2019 5:43 AM CDT): Baseline COPD. Reported easy airway. Short term ventilator support expected. JALIL risk -Once stable labs and CT output, plan to start PSV trial -Keep sats >92% Additional care: Mixed metabolic/respiratory acidosis as discussed in metabolic acidosis section 0445: ABG abg 7.28/45/159/22. Improving metabolic acidosis. Will start to wean sedation, once awake will check another abg and plan PSV trial. 0540: Patient slow to wake up with sedation wean. Once awake and following commands will plan PSV trial. Obtain ABG once awake COPD (chronic obstructive pulmonary disease) Assessment & Plan (01/15/2019 12:40 PM CDT): Reported COPD at baseline. No home inhalers listed on home meds list. Currently no wheezing -Consider inhaler if short of breath or wheezing Assessment & Plan (01/12/2019 1:43 AM CDT): Reported COPD at baseline. No home inhalers listed on home meds list. Currently no wheezing -Consider inhaler if short of breath or wheezing Acute pain 01/12/2019 Assessment & Plan (01/16/2019 12:50 PM CDT): Expected post-cardiac surgery -reports chronic neck and back pain at home -Continue oxycodone and acetaminophen PRN -Lidocaine patches Assessment & Plan (01/14/2019 4:07 PM CDT): Expected post-cardiac surgery -Oxy PRN -Tylenol scheduled -discontinue dilaudid PRN for breakthrough pain -Lido patches Assessment & Plan (01/13/2019 2:16 PM CDT): Expected post-cardiac surgery -Oxy PRN -Tylenol scheduled -dilaudid PRN for breakthrough pain -Lido patches Assessment & Plan (01/12/2019 4:51 PM CDT): Expected post-cardiac surgery -discontinue Fent -Oxy and Tylenol when able to take PO meds -dilaudid PRN for breakthrough pain -Lido patches Assessment & Plan (01/12/2019 1:43 AM CDT): Expected post-cardiac surgery. Currently sedated with propofol. -Start Fentanyl PRN -Lido patches -transition to PO meds when tolerating after extubation Acute blood loss anemia 01/12/2019 Assessment & Plan (01/17/2019 11:58 AM CDT): CBC with am labs h/h stable 8.7/26.1. No signs of active bleeding. -No indication for transfusion at this time -will consider if hgb <8 -daily CBC -ECHO ordered 01/14 to r/o pericardial effusion - small pericardial effusion without evidence of hemodynamic compromise -Continue to monitor Assessment & Plan (01/14/2019 4:08 PM CDT): CBC with am labs h/h stable 8.4/25.1. No signs of active bleeding. -No indication for transfusion at this time -AM CBC Dr. Vazquez at bedside: ECHO to r/o pericardial effusion Assessment & Plan (01/14/2019 4:54 AM CDT): 2 units PRBC in the last 24 hours. CBC with am labs h/h stable 8.4/25.1. No signs of active bleeding. -No indication for transfusion at this time -AM CBC Assessment & Plan (01/13/2019 4:58 PM CDT): Received 2u RBC in the last 24hr. -cbc this am hgb goal >8 -CBC with hgb 8.3, no indication for transfusion at this time. Pt hemodynamically stable SCVO2 with hgb 7.7. UOP marginal, creatinine increasing, and SBP 90-100s. Discussed with ICU attending, 1u RBC now. Assessment & Plan (01/13/2019 5:35 AM CDT): 1 unit PRBC today. Hemoglobin to 8.2. With AM labs, hemoglobin down to 7.4. -1 unit PRBC -F/U CBC Additional Care: Pt endorsing SOB while receiving blood. Held. Clear breath sounds, VSS, sats 100%. Discussed with ICU fellow. Will wait 10 minutes, if remaining stable, will resume the rest of the blood. Patient having intermittent delirium which may be contributing. Assessment & Plan (01/12/2019 4:50 PM CDT): Hgb 9.2 to 8.2 with am labs. Hgb on Scvo2 ~7.7. Pt pale and dizzy when attempting to stand with PT -CBC now Additional care: Hgb 7.5 on CBC. Transfuse 1u RBC now Repeat CBC with hgb 8.2 Assessment & Plan (01/12/2019 1:44 AM CDT): Stable H/H post-op. Minimal CT output -No indication for transfusion at this time -AM CBC Abdominal aortic aneurysm (AAA) 01/12/2019 Assessment & Plan (01/15/2019 12:43 PM CDT): AAA on CT scan preop measuring 3.9 x 3.6cm. -Surgery to follow as outpatient Assessment & Plan (01/12/2019 4:50 PM CDT): AAA on CT scan preop measuring 3.9 x 3.6cm. -Surgery to follow as outpatient Assessment & Plan (01/12/2019 1:45 AM CDT): AAA on CT scan preop measuring 3.9 x 3.6cm. -Surgery to follow as outpatient DENNIS (acute kidney injury) 01/12/2019 Assessment & Plan (01/17/2019 11:59 AM CDT): Post-op creatinine 1.44, Pre-op creatinine 1.2-1.6. Creatinine down with am labs ~1.3. Unknown etiology, likely 2/2 to bypass. -BMP daily -renal dose meds, avoid nephrotoxins -Lasix increased Assessment & Plan (01/14/2019 4:06 PM CDT): Post-op creatinine 1.44, Pre-op creatinine 1.2-1.6. Creatinine down with am labs ~1.7. Unknown etiology likely 2/2 to bypass. Oliguric with moments of anuria resolved. -AM BMP -renal dose meds, avoid nephrotoxins Assessment & Plan (01/14/2019 4:56 AM CDT): Post-op creatinine 1.44, Pre-op creatinine 1.2-1.6. Creatinine continues to rise. Unknown etiology likely 2/2 to bypass. Oliguric with moments of anuria. -AM BMP -renal dose meds, avoid nephrotoxins - Consider renal consult if worsening DENNIS vs lasix challenge Additional Care: Creatinine downtrending to 1.71 (1.81). Increased urine output overnight. Assessment & Plan (01/13/2019 2:22 PM CDT): Post-op creatinine 1.44, Pre-op creatinine 1.2-1.6. Creatinine increased with am labs to 1.7. Unknown etiology likely 2/2 to bypass. -Noon BMP -AM labs -renal dose meds, CrCl decreased to 36 Additional care: 1300 UOP decreasing with zero out at 1300. Flush quinteros to check patency. Check Scvo2 now and give 25% albumin 100ml. Assessment & Plan (01/12/2019 4:54 PM CDT): Post-op creatinine 1.44, Pre-op creatinine 1.2-1.6. UOP ~50ml/hour -AM BMP -renal dose meds if needed (vanc to complete today, CrCl remains ~50 Assessment & Plan (01/12/2019 3:11 AM CDT): Post-op creatinine 1.44, Unknown baseline. UOP ~50ml/hour -AM BMP Coronary artery disease involving [place] coronar y artery 01/08/2019 Assessment & Plan (01/14/2019 4:05 PM CDT): S/P CABG x 3, AVR. Post-Op care to include: Nutrition plan: Cardiac diet Bowel regimen: colace, discontinue senna and miralax DVT prophylaxis: SCDs, add SQH ASA and statin daily Physical therapy/Activity: OOBTC and ambulate with PT POD1 Assessment & Plan (01/13/2019 2:23 PM CDT): S/P CABG x 3, AVR. Post-Op care to include: Nutrition plan: Cardiac diet Bowel regimen: colace, add senna, add miralax DVT prophylaxis: SCDs, add SQH ASA and statin daily Physical therapy/Activity: OOBTC and ambulate with PT POD1 Assessment & Plan (01/12/2019 4:55 PM CDT): S/P CABG x 3, AVR. Post-Op care to include: Nutrition plan: Clears, ADAT Bowel regimen: colace, add senna Prophylaxis: Vancomycin, Ancef periop to complete today DVT prophylaxis: SCDs, add SQH ASA and statin daily Physical therapy/Activity: OOBTC and ambulate with PT POD1 Assessment & Plan (01/12/2019 1:39 AM CDT): S/P CABG x 3, AVR. Post-Op care to include: Stress ulcer prophylaxis: H2 shyam while intubated Nutrition plan: NPO Bowel regimen: colace, senna Prophylaxis: Vancomycin, Ancef periop DVT prophylaxis: SCDs, add SQH POD1 if no bleeding issues ASA POD 1 if no bleeding. MD ASA if stable bleeding post-op. Physical therapy/Activity: OOBTC and ambulate with PT POD1 Assessment & Plan (01/17/2019 12:01 PM CDT): S/P CABG x 3, AVR. Post-Op care to include: Nutrition plan: Cardiac diet Bowel regimen: colace DVT prophylaxis: SCDs, continue SQ heparin, monitor platelet count Physical therapy/Activity: OOBTC and ambulate Diuresis with IV lasix, dose increased Continue aspirin and statin BB increased HTN (hypertension) 01/08/2019 Assessment & Plan (01/12/2019 4:59 PM CDT): Baseline HTN. Arrived on low dose NE and Epi 0.02 -Nicardipine to keep SBP <120 -adequate pain control Assessment & Plan (01/12/2019 1:40 AM CDT): Baseline HTN. Arrived on low dose NE and Epi 0.02 -SBP per surgery <120 Additional Care: Rising B/P with volume admin, off pressors. Start Nicardipine for SBP <120 Assessment & Plan (01/09/2019 11:30 AM CDT): Continue telemetry and Q 4 hr VS Holding home lisinopril 2/2 pending OR Tobacco abuse 01/08/2019 Assessment & Plan (01/08/2019 5:37 PM CDT): Pt currently 1 PPD smoker Offered counseling NSTEMI (non-ST elevated myocardial infarction) 0 01/08/2019 Assessment & Plan (01/11/2019 6:30 AM CDT): Admitted to OSH with NSTEMI Initial troponin was 0.11--most recent = 0.05 See CABG problem Resolved Problems Problem Noted Date Diagnosed Date Resolved Date Metabolic acidosis 01/12/2019 9 Assessment & Plan (01/12/2019 4:46 AM CDT): Post-op ABG with mixed respiratory and metabolic acidosis. -Increase RR and Vt -250ml Albumin Additional care: 0200 ABG with worsening bicarb. PH remaining 7.25, lactate normal. 500ml Albumin now. Will likely benefit from volume resuscitation 0445: Improving bicarb with AM ABG. Encounters Date Type Department Care Team Description 04/22/2025 Telephone [facility] [address]th [place] [address] [place] [address] Santino Fraga MD Test Results 04/15/2025 Orders Only [facility] Scanning, Provider 04/09/2025 Telephone [facility] [address]th [place] [address] [place] [address] Santino Fraga MD Test Results 04/08/2025 3:15 PM CDT Office Visit [facility] [address] [place] [address] Medical Office Building [address] [place] [address] Santino Fraga MD Coronary artery disease involving [place] coronary artery of [place] heart without angina pectoris (Primary Dx); Paroxysmal atrial flutter (HCC); Aortic valve replacement from Last 3 Months Surgical History Surgery Date Site/Laterality Comments REPLACEMENT TOTAL KNEE BILATERAL APPENDECTOMY CERVICAL SPINE SURGERY CARDIAC SURGERY Medical History Medical History Date Comments Coronary artery disease Hyperlipidemia Hypertension Myocardial infarction (HCC) TIA (transient ischemic attack) COPD (chronic obstructive pulmonary disease) (HC C) Glaucoma Ear problems Stroke (HCC) HL (hearing loss) Tinnitus Family History Medical History Relation Name Comments No Known Problems Father No Known Problems Mother Relation Name Status Comments Father Mother Social History Tobacco Use Types Packs/Day Years Used Date Smoking Tobacco: Every Day Cigarettes 1 60 Smokeless Tobacco: Never Tobacco Cessation:Ready to Q uit: Not Asked; Counseling Given: Not Answered Alcohol Use Standard Drinks/Week Comments Yes 0 (1 standard drink = 0.6 oz pur e alcohol) rare AUDIT-C Answer Date Recorded Q1: How often do you have a drink containing alcohol? Never 06/28/2024 Q2: How many drinks containi ng alcohol do you have on a typical day when you are drinking? Patient does not drink Q3: How often do you have si x or more drinks on one occasion? Never 06/28/2024 Personal Safety Answer Date Recorded Have you ever been in or are you currently in a harmful physical or emotional relationship or is someone making you feel afraid or unsafe? 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 Gender Identity Not on file Sexual Orientation Not on file Obstetrics History Last Filed Vital Signs Vital Sign Reading Time Taken Comments Blood Pressure 136/80 04/08/2025 3:17 PM CDT Pulse 53 04/08/2025 3:17 PM CDT Temperature 36.5 C (97.7 F) 06/28/2024 7:44 AM CDT Respiratory Rate 18 06/28/2024 8:35 AM CDT Oxygen Saturation 96% 04/08/2025 3:17 PM CDT Inhaled Oxygen Concentration - - Weight 90 kg (198 lb 6.4 oz) 04/08/2025 3:17 PM CDT Height 180.3 cm (5' 11) 04/08/2025 3:17 PM CDT Body Mass Index 27.67 04/08/2025 3:17 PM CDT Plan of Treatment Health Maintenance Due Date Last Done Comments Depression Screening 1941 Hepatitis B Screening 1959 Zoster Vaccine (1 of 2) 1991 Well Visit 65+ 2006 Pneumococcal vaccine 65+ (2 of 2 - PPSV23) 11/08/2017 09/13/2017 DTaP/Tdap/Td Vaccine (2 - Td or Tdap) 02/06/2023 Influenza Vaccine (#1) 2025 8, 09/13/2017, 07/19/2016 Fall Risk Assessment 06/28/2025 06/28/2024 Medical Devices Implanted Type Area Spray Rig Operator Device Identifier Shelf Expiration Date Model / Serial / Lot Hardware Bilatera l: Knee Hardware N/A: [employer] [id number] [place] [employer]imount Magna Ease 27mm Bioprosthesis - [id number] - [id number] Implanted:Qty: 1 on 01/11/2019 by Abhay García MD at [facility] [employer] 03/02/2020 [id number] / [id number] / Procedures Procedure Name Priority Date/Time Associated Diagnosis Comments KAPPA/LAMBDA LIGHT CHAINS FREE WITH RATIO, SERUM Routine 04/15/2025 12:45 PM CDT Abnormal echocardiogram PROTEIN ELECTROPHORESIS, WITH REFLEX, SERUM Routine 04/15/2025 12:45 PM CDT Abnormal echocardiogram IMMUNOFIXATION, URINE Routine 04/15/2025 12:45 PM CDT Abnormal echocardiogram SCAN - LABS 04/15/2025 from Last 3 Months Results * (ABNORMAL) KAPPA/LAMBDA LIGHT CHAINS FREE WITH RATIO, SERUM (04/15/2025 12:45 PM CDT) Free [place] Lt Chains,S 45.5(H) 3.3 - 19.4 mg/L [facility] - 01 Free Lambda Lt Chains,S 25.1 5.7 - 26.3 mg/L [facility] - 01 [place]/Lambda Ratio, S 1.81(H) 0.26 - 1.65 [facility] - 01 Blood 04/15/2025 12:4 5 PM CDT 04/15/2025 Narrative [facility] - 04/16/2025 4:11 PM CDT Performed at: [facility] [id number] Data Base Administrator: Grant Aviles PhD, Phone: [phone] us Santino Fraga MD LAB BLOOD ORDERABLES Final Re sult Performing Organization Address City/[facility]/ZIP Co de Phone Number [facility] - * Immunofixation, urine with interpretation (04/15/2025 12:45 PM CDT) SHAY Interpretation: U Comment: [facility] - 01 Comment: 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 Suggest repeat in 3 to 6 months if clinically indicated. Urine 04/15/2025 12:4 5 PM CDT 04/15/2025 Narrative [facility] - 04/17/2025 4:11 PM CDT Performed at: [address] [id number] Data Base Administrator: Grant Aviles PhD, Phone: [phone] Santino Fraga MD LAB URINE ORDERABLES Final Re sult Performing Organization Address [place]/[facility] de Phone Number [facility] - * Protein electrophoresis with reflex, serum with interpretation (04/15/2025 12:45 PM CDT) Protein, sr 6.8 6.0 - 8.5 g/dL [facility] - 01 Albumin 3.7 2.9 - 4.4 g/dL [facility] - 01 Alpha-1 globulin 0.2 0.0 - 0.4 g/dL [facility] - 01 Alpha-2 globulin 0.7 0.4 - 1.0 g/dL [facility] - 01 Beta Globulin 1.0 0.7 - 1.3 g/dL [facility] - 01 Gamma globulin 1.2 0.4 - 1.8 g/dL [facility] - 01 M-Reyes Not Observed Not Observed g/dL [facility] - 01 Globulin 3.1 2.2 - 3.9 g/dL [facility] - 01 Alb/glob ratio 1.2 0.7 - 1.7 [facility] - 01 Please Note: Comment [facility] - 01 Comment: Protein electrophoresis scan will follow via computer, mail, or founder and ceo delivery. Blood 04/15/2025 12:4 5 PM CDT 04/15/2025 Narrative [facility] - 04/16/2025 4:11 PM CDT Performed at: [facility] [id number] Data Base Administrator: Grant Aviles PhD, Phone: [phone] us Santino Fraga MD LAB BLOOD ORDERABLES Final Re sult [facility] - 01 * SCAN - LABS (04/15/2025) us Provider Scanning Final Result from Last [address] Months Insurance [address] [place] [address] UHC MEDICARE ADVANTAGE UHC MEDICARE ADVANTAGE [facility] MEDICARE ADVANTAGE [facility] MEDICARE ADVANTAGE [place] [id number] Advance Directives For more information, please contact: [phone] Documents on File Type Date Recorded 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
--- OUTSIDE RECORDS SUMMARY | 2025-04-24 12:46 | XMS_ITS | Encounter Summary ---
Author Organization [facility] Address [facility] [place] [address] Care Team Providers Care Line Ordering Clinician Name Role Phone Bari Ford MD Primary Care Provider [phone] Encounter Details Date Type Department Care Team (Late st Contact Info) Description 03/20/2020 Prep for Procedure [facility] Pre-Admission Testing [place], [place] [id number] Enrique Polanco MD [address] [facility] [place], [place] [id number] Social History Tobacco Use Types Packs/Day Years Used Date Smoking Tobacco: Every Day Cigarettes 0.5 50 Smokeless Tobacco: Never Alcohol Use Standard Drinks/Week Comments Yes 3.3 (1 standard drink = 0.6 oz p ure alcohol) rarely Sex and Gender Information Value Date Recorded Sex Assigned at Not on file Legal Sex Male 3:45 PM CDT Gender Identity Not on file Sexual Orientation Not on file COVID-19 Exposure Response Date Recorded In the last month, have you been in contact with someone who was confirmed or suspected to have Coronavirus / COVID-19? No / Unsure 03/23/2020 5:35 AM CDT documented as of this encounter Plan of Treatment Not on file documented as of this encounter Results * PRE-SURGICAL/PRE-PROCEDURE CORONAVIRUS (COVID 19) (03/20/2020 9:12 AM CDT) CORONAVIRUS SARS COV 2 PCR (RESP) NOT DETECTED NOT DETECTED 03/21/2020 11:03 AM CDT [facility] Comment: A Not Detected (negative) test result for this test means that SARS- CoV-2 RNA was not present in the specimen above the limit of detection. A negative result does not rule out the possibility of COVID-19 and should not be used as the sole basis for treatment or patient management decisions. If COVID-19 is still suspected, based on exposure history together with other clinical findings, re-testing should be considered in consultation with public health authorities. Laboratory test results should always be considered in the context of clinical observations and epidemiological data in making a final diagnosis and patient management decisions. Please review the Fact Sheets and FDA authorized labeling available for health care providers and patients using the following websites: https://[email or web address].TRIRIGA/home/Covid-19/HCP/QuestIVD/fact- sheet.html [email or web address]://www.[facility].TRIRIGA/home/Covid-19/Patients/ QuestIVD/fact-sheet.html This test has been authorized by the FDA under an Emergency Use Authorization (EUA) for use by authorized laboratories. Due to the current public health emergency, [facility] is receiving a high volume of samples from a wide variety of swabs and media for COVID-19 testing. In order to serve patients during this public health crisis, samples from appropriate clinical sources are being tested. Negative test results derived from specimens received in non-commercially manufactured viral collection and transport media, or in media and sample collection kits not yet authorized by FDA for COVID-19 testing should be cautiously evaluated and the patient potentially subjected to extra precautions such as additional clinical monitoring, including collection of an additional specimen. Methodology: Nucleic Acid Amplification Test (NAAT) includes PCR or TMA Additional information about COVID-19 can be found at the [facility] website: www.[facility].TRIRIGA/Covid19. Test performed at [facility] [address] [place] [address] Director: ENRIQUE GOOD DO,MPH NASOPHARYNGEAL SWAB / Unknown 03/20/2020 9:12 AM CDT us Enrique Polanco MD MICROBIOLOGY - GENERAL OR DERABLES Final Result [facility] [address] [place] [address], [place] documented in this encounter Visit Diagnoses Diagnosis Preoperative testing- Primary Preoperative examination, unspecified documented in this encounter Additional Health Concerns Infection Onset Date Last Indicated Resolved Time COVID-19 Rule Out 03/20/2020 03/20/2020 03/21/2020 11:03 AM CDT documented as of this encounter Care Teams Line Ordering Clinician Relationship Specialty Start Date End Date Bari Ford MD [address] [facility] [address] [place] [address] PCP - General INTERNAL MEDICINE 03/20/20 documented as of this encounter
--- OUTSIDE RECORDS SUMMARY | 2025-04-24 12:46 | XMS_ITS | Referral Summary ---
Author Organization [facility] [address] Address [address] [place] [address] Care Team Providers Care Photo Technician Name Role Phone Harry Lomeli DO Primary Care Provider [phone] Encounters Date Type Department Care Team Description 04/22/2025 Telephone [facility] Cardiology [address] [facility] Medicine 8th [place] [address] [place] [address] Santino Fraga MD Test Results 04/15/2025 Orders Only [facility] Scanning, Provider 04/09/2025 Telephone [facility] Cardiology [address] [facility] 8th [place] [address] [place] [address] Santino Fraga MD Test Results 04/08/2025 3:15 PM CDT Office Visit [facility] Cardiology [facility] [facility] [address] [place] [address] Santino Fraga MD Coronary artery disease involving capitan grande band coronary artery 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 Extubated kiln maintenance. Remaining on NC this evening. CXR with LLL haziness likely mucous plug with collapse, stable. -wean O2 to keep sats >92% -Chest PT QID -OOBTC when able -pulmonary hygiene Assessment & Plan (01/13/2019 2:36 AM CDT): Baseline COPD. Extubated kiln maintenance. Remaining on NC this evening. CXR with [...] ~50ml/hour -AM BMP Coronary artery disease involving capitan grande band coronar y artery 01/08/2019 Assessment & Plan [...] issues ASA POD 1 if no bleeding. RI ASA if stable bleeding post-op. Physical therapy/Activity: [...] Diagnosed Date Resolved Date Metabolic acidosis 01/12/2019 04//201 9 Assessment & Plan (01/12/2019 4:46 AM CDT): Post-op ABG with mixed respiratory and metabolic acidosis. -Increase RR and Vt -250ml Albumin Additional care: 0200 ABG with worsening bicarb. PH remaining 7.25, lactate normal. 500ml Albumin now. Will likely benefit from volume resuscitation 0445: Improving bicarb with AM ABG. 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 [employer] 03/02/2020 [id number] / [id number] / Procedures Procedure Name Priority Date/Time Associated [...] WITH RATIO, SERUM (04/15/2025 12:45 PM CDT) Pathologist [facility] Free Canastota Lt Chains,S 45.5(H) 3.3 - 19.4 mg/L [facility] - 01 Free Lambda Lt Chains,S 25.1 5.7 - 26.3 mg/L [facility] - 01 Canastota/Lambda Ratio, S 1.81(H) 0.26 - 1.65 [facility] - 01 Blood 04/15/2025 12:4 5 PM CDT 04/15/2025 Narrative [facility] - 04/16/2025 4:11 PM CDT Performed at: [address] [place] [id number] Business Services Coordinator: Grant Aviles PhD, Phone: [phone] Santino Fraga MD LAB BLOOD ORDERABLES Final Re sult Performing Organization Address [facility] de Phone Number [facility] - 01 * Immunofixation, urine with interpretation (04/15/2025 12:45 PM CDT) Pathologist [facility] SHAY Interpretation: U Comment: [facility] - 01 Comment: 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 Suggest repeat in 3 to 6 months if clinically indicated. Urine 04/15/2025 12:4 5 PM CDT 04/15/2025 Narrative [facility] - 04/17/2025 4:11 PM CDT Performed at: [address] [place] [id number] Business Services Coordinator: Grant Aviles PhD, Phone: [phone] Santino Fraga MD LAB URINE ORDERABLES Final Re sult [facility] - 01 * Protein electrophoresis with reflex, serum with [...] scan will follow via computer, mail, or supervisor mold yard delivery. Blood 04/15/2025 12:4 5 PM CDT 04/15/2025 Narrative [facility] - 04/16/2025 4:11 PM CDT Performed at: - [address] [id number] Business Services Coordinator: Grant Aviles PhD, Phone: [phone] us Santino Fraga MD LAB BLOOD ORDERABLES Final Re sult [facility] - 01 * SCAN - LABS (04/15/2025) us Provider Scanning Final Result from Last 3 Months Insurance [facility] ADVANTAGE [facility] Address: [address] [address] [place] [id number] UHC MEDICARE ADVANTAGE [facility] Address: [address] [address] [place] [id number] UHC MEDICARE ADVANTAGE [facility] Address: [address] [phone] UHC MEDICARE ADVANTAGE Advance Directives For more information, please contact: [phone] Documents on File Type Date Recorded Patient Shrimper Expl anation Advance Directives and Livin g Will 06/28/2024 6:03 AM * Full Code (Latest Code Status on File) Date Activated Date Inactivated Comments 01/08/2019 5:08 PM 01/18/2019 5:47 PM Care Teams Photo Technician Relationship Specialty Start Date End Date Harry Lomeli DO PCP - General Internal Medicine 07/26/22
--- OUTSIDE RECORDS SUMMARY | 2025-04-24 12:46 | XMS_ITS | Clinical Summary ---
Author Organization [facility] Address [address] [place] [address] Care Team Providers Care New Media Strategist Name Role Phone Bari Ford MD Primary Care Provider [phone] Allergies No known active allergies Medications Acetaminophen 500 MG Cap Take 2 capsules by mouth every 6 (six) hours as needed for Pain. Active latanoprost 0.005 % ophthalmic solution Apply 1 drop to eye daily. Active aspirin EC 81 MG tablet Take 81 mg by mouth daily. Active atorvastatin 80 MG tablet Take 80 mg by mouth nightly. 08/28/2019 Active lisinopril 40 MG tablet Take 40 mg by mouth daily. 04/09/2019 Active metoprolol succinate ER 50 MG 24 hr tablet Take 75 mg by mouth daily. 07/22/2019 Active timolol 0.25 % ophthalmic solution Place 1 drop into both eyes 2 (two) times daily. 06/18/2019 Active Active Problems Problem Noted Date Diagnosed Date Left ureteral stone 03/23/2020 Family History Medical History Relation Comments None Father unknown Multiple Sclerosis Mother Relation Status Comments Daughter Alive Father Mother Son 1 Alive Son 2 Alive Son 3 Social History Tobacco Use Types Packs/Day Years [...] Sign Reading Time Taken Comments Blood Pressure 152/93 03/23/2020 9:42 AM CDT Pulse 83 03/23/2020 9:42 AM CDT Temperature 36.7 C (98.1 F) 03/23/2020 9:42 AM CDT Respiratory Rate 16 03/23/2020 9:42 AM CDT Oxygen Saturation 100% 03/23/2020 9:42 AM CDT Inhaled Oxygen Concentration - - Weight 100.5 kg (221 lb 9 oz) 03/23/2020 6:21 AM CDT Height 180.3 cm (5' 11) 03/23/2020 6:21 AM CDT Body Mass Index 30.9 03/23/2020 6:21 AM CDT Plan of Treatment Health Maintenance Due Date Last Done Comments DTaP, Tdap and Td Vaccines ( 1 - Tdap) 1960 Pneumococcal Vaccine: 50+ Ye ars (1 of 2 - PCV) 1960 Zoster Vaccines (1 of 2) 1991 Annual Medicare Wellness Visit 2006 RSV Immunization or 60+ Years (1 - 1-dose 75+ series) 2016 COVID-19 Vaccine (2023-2 5 season) 2024 Meningococcal B Vaccine Aged Out No l onger eligible based on patient's age to complete this topic Meningococcal Vaccine Aged Out No nai milton eligible based on patient's age to complete this topic RSV Immunizations Under 20 Months Aged Out No longer eligible based on patient's age to complete this topic Medical Devices Implanted Type Area Residential Energy Auditor Device Identifier Shelf Expiration Date Model / Serial / Lot Stent Uret 6fr 28cm Pigtl Crv Taper Tip Bldr Mrk - [id number] Implanted:Qty: 1 on 03/23/2020 by Enrique Polanco MD at [facility] Stent Left: [employer] SARAH 11/03/2022 [id number] / / [id number] Insurance [address] [place], [place] [id number] [facility] Care Teams New Media Strategist Relationship Specialty Start Date End Date Bari Ford MD [address] - [facility] [address] [place] [address] PCP - General INTERNAL MEDICINE 03/20/20
--- OUTSIDE RECORDS SUMMARY | 2025-04-24 12:46 | XMS_ITS | Encounter Summary ---
Author Organization [facility] Address [address] [place] [address] Phone Care Team Providers Care Railroad Commissioner Name Role Phone Harry Lomeli DO Primary Care Provider [phone] Encounter Details Date Type Department Care Team (Latest Contact Info) Description 05/29/2024 Orders Only [facility] Scanning, Provider Social History Tobacco Use Types Packs/Day Years Used Date Smoking Tobacco: Every Day Cigarettes 1 60 Smokeless Tobacco: Never Alcohol Use Standard Drinks/Week Comments Yes 0 (1 standard drink = 0.6 oz pur e alcohol) rare Personal Safety Answer Date Recorded Getting School Help Needed Not on file 11/20 Sex and Gender Information Value Date Recorded Sex Assigned at Not on file 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 Gender Identity Not on file Sexual Orientation Not on file documented as of this encounter Plan of Treatment Not on file documented as of this encounter Procedures Procedure Name Priority Date/Time Associated Diagnosis Comments CARDIOLOGY DOCUMENT SCAN 05/29/2024 documented in this encounter Results * Cardiology Document Scan (05/29/2024) Anatomical Region Laterality Modality Other us Provider Scanning [facility] CARDIAC SERVICES PROCEDURES Final Result documented in this encounter Visit Diagnoses Not on filedocumented in this encounter Care Teams Railroad Commissioner Relationship Specialty Start Date End Date Harry Lomeli DO PCP - General Internal Medicine 07/26/22 documented as of this encounter
== END 2025-04-24 12:44 | disposition home or self-care (01) ==
LOC: ANHAUDIO 12:44
PROVIDERS: PCP Internal Medicine; Visit Provider Otolaryngology Otolaryngology/Facial Plastic Surgery
DX: H90.3 Sensorineural hearing loss, bilateral (principal); H93.13 Tinnitus, bilateral; H74.8X3 Other specified disorders of middle ear and mastoid, bilateral; H74.13 Adhesive middle ear disease, bilateral; Z77.122 Contact with and (suspected) exposure to noise; Z97.4 Presence of external hearing-aid
CPT/HCPCS: 92557; 92567